=== PATIENT | female | born 1960 | race Caucasian/White ===

== ENCOUNTER 2019-10-24 14:05 | Outpatient (CLI) | payer OTHER, SELFPAY ==
[2019-10-24 15:31] LABS: Free T4 Free Thyroxine 0.86 ng/mL (0.78-2.19)
== END 2019-10-24 14:06 | disposition home or self-care (01) ==
PROVIDERS: Visit Provider Obstetrics & Gynecology
DX: R23.2 Flushing (principal)
CPT/HCPCS: 36415; 84439; 84443

== ENCOUNTER 2020-02-01 10:18 | Outpatient (CLI) | payer OTHER, SELFPAY ==
--- NOTE | ~2020-02-01 | MM_ITS ---
EXAMINATION: MM screening [facility] BI w geovanna HISTORY: Screening mammogram TECHNIQUE: Craniocaudal and mediolateral oblique 3-D tomosynthesis images were obtained and synthetic 2-D images were generated. CAD analysis was submitted and interpreted. COMPARISON: 01/03/2019 bilateral digital screening mammogram 12/21/2017 bilateral diagnostic digital mammogram and complete left breast ultrasound 12/12/2016 bilateral diagnostic digital mammogram and complete left breast ultrasound BREAST PARENCHYMAL COMPOSITION: The breasts are heterogeneously dense, which may obscure small masses . FINDINGS: Bilateral occasional circumscribed low-density opacities, largest situated posteriorly in t he mid and lower outer left breast, measuring 10.5 x 15.5 mm approximately. This has partial halo, co nsistent with benign process, probable cyst. There are scattered bilateral benign calcifications. There is no evidence of suspicious mass, calcifi cation, or architectural distortion to suggest malignancy in either breast. There has been no suspici ous interval change. IMPRESSION: 1. No mammographic evidence of malignancy. 2. Recommend routine screening mammography in one year. BI-RADS Category 2: Benign finding(s). Reviewed, dictated and finalized at location A. LED HELPER
== END 2020-02-01 10:19 | disposition home or self-care (01) ==
LOC: ANHIMG 10:19
PROVIDERS: Visit Provider Obstetrics & Gynecology
DX: Z12.31 Encounter for screening mammogram for malignant neoplasm of breast (principal)
CPT/HCPCS: 77063; 77067

== ENCOUNTER 2021-02-02 09:41 | Outpatient (CLI) | payer OTHER, SELFPAY ==
--- NOTE | ~2021-02-02 | MM_ITS ---
EXAMINATION: MM screening [facility] BI w geovanna HISTORY: Screening mammogram TECHNIQUE: Craniocaudal and mediolateral oblique 3-D tomosynthesis images were obtained and synthetic 2-D images were generated. CAD analysis was submitted and interpreted. COMPARISON: 02/01/2020, 01/03/2019, 12/21/2017 BREAST PARENCHYMAL COMPOSITION: The breasts are heterogeneously dense, which may obscure small masses . FINDINGS: Multiple obscured left breast masses are again identified without suspicious interval middleton e. There is no evidence of suspicious mass, calcification, or architectural distortion to suggest mal ignancy in either breast. There has been no suspicious interval change. IMPRESSION: 1. No mammographic evidence of malignancy. 2. Recommend routine screening mammography in one year. BI-RADS Category 2: Benign finding(s). Reviewed, dictated and finalized at location A. N PICKER
== END 2021-02-02 09:42 | disposition home or self-care (01) ==
LOC: ANHIMG 09:43
PROVIDERS: PCP Family Medicine; Visit Provider Obstetrics & Gynecology
DX: Z12.31 Encounter for screening mammogram for malignant neoplasm of breast (principal)
CPT/HCPCS: 77063; 77067

== ENCOUNTER 2021-10-12 09:48 | Outpatient (CLI) | payer OTHER, SELFPAY ==
[2021-10-12 18:54] LABS: Basophils Percent Auto 0.7 % (0.2-1.2); Eosinophils Absolute Auto 0.3 K/mm3 (0-0.3); Eosinophils Percent Auto 5.4 % (0-4.4); Hematocrit 43.9 % (37.0-47.0); Hemoglobin 14.4 g/dL (12.0-15.0); Immature Granulocyte Absolute 0.03 K/mm3 (0.00-0.031); Immature Granulocyte Percent A 0.5 % (0-0.5); Lymphocytes Absolute Auto 1.86 K/mm3 (0.9-3.2); Lymphocytes Percent Auto 30.2 % (18.3-44.2); Mean Corpuscular HGB Conc 32.8 g/dl (32-36); Mean Corpuscular Hemoglobin 29.9 pg (26-34); Mean Corpuscular Volume 91.1 fl (80-100); Mean Platelet Volume 9.8 fl (7.4-10.4); Monocytes Absolute Auto 0.5 K/mm3 (0.1-0.6); Monocytes Percent Auto 8.1 % (2.6-8.5); Neutrophils Absolute Auto 3.4 K/mm3 (1.3-6.7); Neutrophils Percent Auto 55.1 % (45.5-73.1); Platelet Count Result 320 k/mm3 (150-375); Red Blood Count 4.82 M/mm3 (4.2-5.4); Red Cell Distribution Width 13.3 % (11.5-14.5); White Blood Count 6.2 K/mm3 (4.5-10.0)
[2021-10-12 19:03] LABS: Alanine Aminotransferase 14 U/L (6-35); Albumin Level 4.2 g/dL (3.5-5.1); Alkaline Phosphatase 112 U/L (38-126); Anion Gap 3 mmol/L (8-16); Aspartate Amino Transferase 27 U/L (14-36); Bilirubin,Total 0.3 mg/dL (0.2-1.3); Blood Urea Nitrogen 21 mg/dL (7-17); Calcium 8.8 mg/dL (8.4-10.2); Carbon Dioxide 29 mmol/L (22-30); Chloride 101 mmol/L (98-107); Cholesterol 242 mg/dL (0-200); Estimated Glomerular Filt Rate > 60; Glucose 92 mg/dL (65-110); HDL Direct 49 mg/dL; Potassium 4.2 mmol/L (3.4-5.0); Sodium 133 mmol/L (137-145); Triglycerides 265 mg/dL (<150)
[2021-10-12 19:14] LABS: LDL Cholesterol Direct 97 mg/dL
== END 2021-10-12 09:49 | disposition home or self-care (01) ==
LOC: ANHGOSHLAB 09:51
PROVIDERS: PCP Family Medicine; Visit Provider Nurse Practitioner Family
DX: Z00.00 Encounter for general adult medical examination without abnormal findings (principal); E78.5 Hyperlipidemia, unspecified; E78.2 Mixed hyperlipidemia; E55.9 Vitamin D deficiency, unspecified
CPT/HCPCS: 36415; 80053; 80061; 82306; 84443; 85025

== ENCOUNTER 2022-02-03 13:30 | Outpatient (CLI) | payer OTHER, SELFPAY ==
--- NOTE | ~2022-02-03 | DEXA_ITS ---
Bone Density Report Name: ESPERANZA VELÁZQUEZ Age: 61 Sex: Female Ethnicity: White Date of : 1960 Indication: postmenopausal; screening for osteoporosis; height loss; hysterectomy; Referring Provider: NOREEN MCQUEEN Study: Bone densitometry was performed. Exam Date: February 03, 2022 Accession number: [id number] Bone Density: Region BMD T-score Z-score Classification AP Spine(L1-L4) 1.212 1.5 3.1 Normal Femoral Neck (Left) 0.849 0.0 1.4 Normal Total Hip (Left) 1.020 0.6 1.8 Normal Femoral Neck (Right) 0.982 1.2 2.6 Normal Total Hip (Right) 1.094 1.2 2.4 Normal Total Hip Mean 1.057 0.9 2.1 Normal World Health Organization criteria for BMD impression classify patients as: Normal (T-score at or above -1.0), Osteopenia (T-score between -1.0 and -2.5), or Osteoporosis (T-score at or below -2.5). 10-year Fracture Risk: FRAX not reported because: All T-scores for Spine Total, Hip Total, Femoral Neck at or above -1.0 Previous Exams: Region Exam Age BMD T-score BMD Change BMD Change Date g/cm2 vs Baseline vs Previous AP Spine (L1-L4) 02/03/2022 61 1.212 1.5 0.167 (16.0%)# 0.078 (6.9%)# 01/03/2019 58 1.133 0.8 0.088 (8.5%)* 0.085 (8.1%)# 10/23/2015 55 1.048 0.0 0.003 (0.3%)# 0.003 (0.3%)# 11/19/2012 52 1.045 0.0 Total Hip(Left) 02/03/2022 61 1.020 0.6 0.039 (4.0%)# -0.033 (-3.1%) 01/03/2019 58 1.053 0.9 0.072 (7.4%)* 0.015 (1.5%)# 10/23/2015 55 1.038 0.8 0.057 (5.8%)# 0.057 (5.8%)# 11/19/2012 52 0.981 0.3 Total Hip(Right) 02/03/2022 61 1.094 1.2 0.045 (4.3%)# -0.004 (-0.4%) 01/03/2019 58 1.099 1.3 0.050 (4.7%)* 0.071 (6.9%)# 10/23/2015 55 1.027 0.7 -0.022 (-2.1%) -0.022 (-2.1%) 11/19/2012 52 1.049 0.9 *Denotes significance at 95% confidence level, LSC for AP Spine = 0.022 g/cm2, LSC for Total Hip = 0.027 g/cm2 # Denotes dissimilar scan types or analysis methods Clinical Information Provided by Patient: Has used the following medications: Vitamin D, Calcium Has the following medical conditions: Hysterectomy Patient maximum height was 70 Menopause Age: 36 Onset of menses at age 10 Number of children 1 Impression: The patient has normal bone mass. No significant bone loss was observed. Discussion: BONE DENSITY IS ABOVE THE MINIMUM DESIRABLE LEVEL AT ALL SKELETAL SITES TESTED. This patient?s bone mineral density is above the m
--- NOTE | ~2022-02-03 | MM_ITS ---
EXAMINATION: MM screening [facility] BI w geovanna HISTORY: Screening TECHNIQUE: Craniocaudal and mediolateral oblique 3-D tomosynthesis images were obtained and synthetic 2-D images were generated. CAD analysis was submitted and interpreted. COMPARISON: Comparison to multiple prior studies sequentially, with oldest reviewed study dated 11/15. BREAST PARENCHYMAL COMPOSITION: The breasts are heterogeneously dense, which may obscure small masses . FINDINGS: There are multiple developing bilateral breast masses which are partially obscured by fibro glandular tissue. These masses are scattered throughout both breasts. There are scattered benign-appe aring calcifications without significant change. IMPRESSION: 1. Developing bilateral breast masses. 2. Additional mammographic views and possible breast ultrasound are recommended. BI-RADS Category 0: Incomplete: Needs additional imaging evaluation. Reviewed, dictated and finalized at location A. RATORY MANAGER IMPRESSION: 1. Developing bilateral breast masses. 2. Additional mammographic views and possible breast ultrasound are recommended . BI-RADS Category 0: Incomplete: Needs additional imaging evaluation.
== END 2022-02-03 13:31 | disposition home or self-care (01) ==
LOC: ANHIMG 13:33
PROVIDERS: PCP Family Medicine; Referring Provider Obstetrics & Gynecology; Visit Provider Nurse Practitioner Family
DX: Z12.31 Encounter for screening mammogram for malignant neoplasm of breast (principal); Z78.0 Asymptomatic menopausal state; R92.8 Other abnormal and inconclusive findings on diagnostic imaging of breast
CPT/HCPCS: 77063; 77067; 77080

== ENCOUNTER 2022-03-01 12:17 | Outpatient (CLI) | payer OTHER, SELFPAY ==
--- NOTE | ~2022-03-01 | MMUS_ITS ---
EXAMINATION: MM diagnostic [facility] BI w geovanna, US breast BI limited HISTORY: Bilateral breast masses on screening mammogram TECHNIQUE: Additional 3-D tomosynthesis images of the breasts were performed and synthetic 2-D images were generated. CAD analysis was submitted and interpreted. High resolution limited bilateral breast ultrasound was performed. COMPARISON: 02/03/2022, 02/02/2021, 02/01/2020, 01/03/2019, 12/21/2017 FINDINGS: MAMMOGRAPHIC FINDINGS: Left breast: There are waxing and waning masses of the left breast, previously characterized as cysts . None demonstrate suspicious interval change. Right breast: There are obscured equal density masses in the posterior third of the upper outer quadr ant of the right breast which measure up to 9 mm. No suspicious architectural distortion or calcifica tion are identified. ULTRASOUND: Left breast: Masses in the upper inner quadrant of the left breast have the appearance of cyst compli cated cysts. Right breast: There are multiple hypoechoic and anechoic masses in the upper outer quadrant of the ri ght breast which measure up to 12 mm. The masses demonstrate either posterior acoustic enhancement or no posterior features. None demonstrate internal vascularity. IMPRESSION: 1. Probably benign right breast masses. 2. Recommend 6 month follow-up right diagnostic mammogram and ultrasound. BI-RADS category 3, probably benign findings. Reviewed, dictated and finalized at location A. ORATE EVENT PLANNER IMPRESSION: 1. Probably benign right breast masses. 2. Recommend 6 month follow-up right diagnostic mammogram and ultrasound. BI-RADS category 3, probably benign findings.
== END 2022-03-01 12:18 | disposition home or self-care (01) ==
PROVIDERS: PCP Family Medicine; Visit Provider Obstetrics & Gynecology
DX: R92.8 Other abnormal and inconclusive findings on diagnostic imaging of breast (principal)
CPT/HCPCS: 76642; 77062; 77066; G0279

== ENCOUNTER 2022-06-02 12:33 | Outpatient (CLI) | payer OTHER, SELFPAY ==
[2022-06-02 19:57] LABS: Alanine Aminotransferase 32 U/L (6-35); Albumin Level 4.5 g/dL (3.5-5.1); Alkaline Phosphatase 89 U/L (38-126); Anion Gap 7 mmol/L (8-16); Aspartate Amino Transferase 30 U/L (14-36); Bilirubin,Total 0.6 mg/dL (0.2-1.3); Blood Urea Nitrogen 23 mg/dL (7-17); Carbon Dioxide 29 mmol/L (22-30); Chloride 102 mmol/L (98-107); Cholesterol 231 mg/dL (0-200); Estimated Glomerular Filt Rate > 60; Glucose 97 mg/dL (65-110); HDL Direct 40 mg/dL; Potassium 3.9 mmol/L (3.4-5.0); Sodium 138 mmol/L (137-145); Triglycerides 246 mg/dL (<150)
[2022-06-02 20:07] LABS: LDL Cholesterol Direct 100 mg/dL
== END 2022-06-02 12:34 | disposition home or self-care (01) ==
LOC: ANHGOSHLAB 12:34
PROVIDERS: PCP Family Medicine; Visit Provider Nurse Practitioner Family
DX: E78.5 Hyperlipidemia, unspecified (principal); I10 Essential (primary) hypertension
CPT/HCPCS: 36415; 80053; 80061

== ENCOUNTER 2022-07-12 11:54 | Outpatient (CLI) | payer OTHER, SELFPAY ==
--- NOTE | ~2022-07-12 | XR_ITS ---
Right Knee Technique: AP, lateral, and sunrise views were obtained. Clinical History: Pain Findings: No fracture or dislocation is seen. Osseous alignment is anatomic. There is advanced degene rative change of the patellofemoral compartment. Medial and lateral compartments demonstrate minimal degenerative change. Soft tissues are unremarkable. No joint effusion is seen. Impression: Severe degenerative change of the patellofemoral compartment. Minimal degenerative change of the lateral and medial compartments. Reviewed, dictated and finalized at location M. Impression: Severe degenerative change of the patellofemoral compartment. Minimal degenerative change of the lateral and medial compartments.
--- NOTE | ~2022-07-12 | XR_ITS ---
Left Knee Technique: AP, lateral, and sunrise views were obtained. Clinical History: Pain Findings: No fracture or dislocation is seen. Osseous alignment is anatomic. There is advanced degene rative change of the patellofemoral compartment. There is mild to moderate degenerative change of the medial compartment. There is minimal degenerative change of the lateral compartment. Soft tissues ar e unremarkable. No joint effusion is seen. 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 Reviewed, dictated and finalized at location M. Impression: Tricompartment osteoarthritis, as detailed above, worst in the patellofemoral c ompartment.
== END 2022-07-12 11:55 | disposition home or self-care (01) ==
PROVIDERS: PCP Family Medicine; Visit Provider Nurse Practitioner Family
DX: M17.0 Bilateral primary osteoarthritis of knee (principal)
CPT/HCPCS: 73562

== ENCOUNTER 2022-11-30 13:52 | Outpatient (CLI) | payer OTHER, SELFPAY ==
[2022-11-30 18:54] LABS: Basophils Percent Auto 0.8 % (0.2-1.2); Eosinophils Absolute Auto 0.1 K/mm3 (0-0.3); Eosinophils Percent Auto 2.5 % (0-4.4); Hemoglobin 15.2 g/dL (12.0-15.0); Immature Granulocyte Absolute 0.02 K/mm3 (0.00-0.031); Immature Granulocyte Percent A 0.4 % (0-0.5); Lymphocytes Absolute Auto 1.86 K/mm3 (0.9-3.2); Lymphocytes Percent Auto 35.1 % (18.3-44.2); Mean Corpuscular HGB Conc 32.3 g/dl (32-36); Mean Corpuscular Hemoglobin 29.6 pg (26-34); Mean Corpuscular Volume 91.4 fl (80-100); Mean Platelet Volume 9.9 fl (7.4-10.4); Monocytes Absolute Auto 0.5 K/mm3 (0.1-0.6); Monocytes Percent Auto 9.8 % (2.6-8.5); Neutrophils Absolute Auto 2.7 K/mm3 (1.3-6.7); Neutrophils Percent Auto 51.4 % (45.5-73.1); Platelet Count Result 300 k/mm3 (150-375); Red Blood Count 5.14 M/mm3 (4.2-5.4); Red Cell Distribution Width 13.2 % (11.5-14.5); White Blood Count 5.3 K/mm3 (4.5-10.0)
[2022-11-30 19:32] LABS: Alanine Aminotransferase 35 U/L (6-35); Albumin Level 4.7 g/dL (3.5-5.1); Alkaline Phosphatase 97 U/L (38-126); Anion Gap 6 mmol/L (8-16); Aspartate Amino Transferase 42 U/L (14-36); Bilirubin,Total 0.9 mg/dL (0.2-1.3); Blood Urea Nitrogen 18 mg/dL (7-17); Calcium 9.4 mg/dL (8.4-10.2); Carbon Dioxide 30 mmol/L (22-30); Chloride 101 mmol/L (98-107); Cholesterol 250 mg/dL (0-200); Estimated Glomerular Filt Rate > 60; Glucose 101 mg/dL (65-110); HDL Direct 48 mg/dL; Potassium 4.2 mmol/L (3.4-5.0); Sodium 137 mmol/L (137-145); Triglycerides 141 mg/dL (<150)
[2022-11-30 19:44] LABS: LDL Cholesterol Direct 124 mg/dL
[2022-12-04 14:43] LABS: Vitamin D 1,25 (OH)2 Total 24 pg/mL (18-72); Vitamin D2 1,25 (OH)2 <8 pg/mL; Vitamin D3 1,25 (OH)2 24 pg/mL
== END 2022-11-30 13:53 | disposition home or self-care (01) ==
LOC: ANHGOSHLAB 13:53
PROVIDERS: PCP Family Medicine; Visit Provider Nurse Practitioner Family
DX: Z00.00 Encounter for general adult medical examination without abnormal findings (principal); E78.2 Mixed hyperlipidemia; E55.9 Vitamin D deficiency, unspecified
CPT/HCPCS: 36415; 80053; 80061; 82652; 84443; 85025

== ENCOUNTER 2023-02-16 08:28 | Outpatient (CLI) | payer OTHER, SELFPAY ==
--- NOTE | ~2023-02-16 | MM_ITS ---
EXAMINATION: MM screening [facility] BI w geovanna HISTORY: Screening mammogram, patient is overdue for follow-up of probably benign right breast masses TECHNIQUE: Craniocaudal and mediolateral oblique 3-D tomosynthesis images were obtained and synthetic 2-D images were generated. CAD analysis was submitted and interpreted. COMPARISON: 03/01/2022, 02/03/2022, 02/02/2021, 01/31/2019 BREAST PARENCHYMAL COMPOSITION: The breasts are heterogeneously dense, which may obscure small masses . FINDINGS: Multiple bilateral breast masses have a mammographically similar appearance when compared t o the most recent prior examination. No suspicious mass, calcification, or architectural distortion a re identified in either breast to suggest malignancy. There has been no suspicious interval change. IMPRESSION: 1. No mammographic evidence of malignancy. 2. Patient is overdue for follow-up of probably benign right breast masses in the upper outer quadran t of the right breast. Given the interval mammographic stability, further evaluation with limited rig ht breast ultrasound is recommended. BI-RADS Category 0: Incomplete: Needs additional imaging evaluation. Reviewed, dictated and finalized at location A. R GUIDE IMPRESSION: 1. No mammographic evidence of malignancy. 2. Patient is overdue for follow-up of probably benign right breast masses in t he upper outer quadrant of the right breast. Given the interval mammographic st ability, further evaluation with limited right breast ultrasound is recommended . BI-RADS Category 0: Incomplete: Needs additional imaging evaluation.
== END 2023-02-16 08:29 | disposition home or self-care (01) ==
PROVIDERS: PCP Family Medicine; Visit Provider Obstetrics & Gynecology
DX: Z12.31 Encounter for screening mammogram for malignant neoplasm of breast (principal); R92.8 Other abnormal and inconclusive findings on diagnostic imaging of breast
CPT/HCPCS: 77063; 77067

== ENCOUNTER 2023-03-17 10:37 | Outpatient (CLI) | payer OTHER, SELFPAY ==
--- NOTE | ~2023-03-17 | US_ITS ---
US breast BI complete 03/17/2023 12:37 Indication: Follow-up bilateral breast masses Procedure: High-resolution complete bilateral breast ultrasound including all 4 quadrants in the suba reolar locations Comparison: Comparison to multiple prior studies sequentially, with oldest reviewed study dated 01/13. Findings: Right breast: There are multiple simple and complicated cysts of both breasts. At 1:00, 5 cm from the nipple there is an oval hypoechoic 7 mm mass with internal echogenic foci, possibly calcification. N o significant posterior features or internal vascularity. At 3:00, 4 cm from the nipple there is an o travis hypoechoic 6 mm mass with eccentric echogenic foci, no posterior features and no internal vascula rity. At 6:00, 6 cm from the nipple there is an oval hypoechoic 5 mm mass with low level internal ech oes, no significant posterior features and no internal vascularity. At 9:00, 5 cm from the nipple the re is a 1.3 cm cyst. Left breast: At 3:00, 5 cm from the nipple there is a 1 cm cyst. At 6:00, 5 cm from the nipple there is an irregular shaped hypoechoic 7 mm mass with some angular margins, parallel orientation, no poste rior features and no internal vascularity. Impression: 1: Probable benign bilateral breast masses. BI-RADS CATEGORY 3-PROBABLY BENIGN FINDING RECOMMENDATION: Six-month follow-up diagnostic bilateral mammogram and ultrasound recommended. Reviewed, dictated and finalized at location A. HER WRINGER OPERATOR Impression: 1: Probable benign bilateral breast masses. BI-RADS CATEGORY 3-PROBABLY BENIGN FINDING RECOMMENDATION: Six-month follow-up diagnostic bilateral mammogram and ultrasou nd recommended.
== END 2023-03-17 10:38 | disposition home or self-care (01) ==
LOC: ANHIMG 10:40
PROVIDERS: PCP Nurse Practitioner; Visit Provider Obstetrics & Gynecology
DX: R92.8 Other abnormal and inconclusive findings on diagnostic imaging of breast (principal)
CPT/HCPCS: 76641

== ENCOUNTER 2023-09-18 15:03 | Outpatient (CLI) | payer MEDICARE, SELFPAY | END 2023-09-18 15:04 | disposition home or self-care (01) | PROVIDERS: PCP Family Medicine; Visit Provider Family Medicine | DX: N39.0 Urinary tract infection, site not specified (principal); R31.9 Hematuria, unspecified | CPT/HCPCS: 87077; 87086; 87088; 87186 ==

== ENCOUNTER 2023-09-22 10:34 | Outpatient (CLI) | payer MEDICARE, OTHER, SELFPAY ==
--- NOTE | ~2023-09-22 | MMUS_ITS ---
EXAMINATION: MM diagnostic [facility] BI w geovanna, US breast BI limited HISTORY: Follow-up breast masses TECHNIQUE: Additional 3-D tomosynthesis images of the breasts were performed and synthetic 2-D images were generated. CAD analysis was submitted and interpreted. High resolution limited bilateral breast ultrasound was performed. COMPARISON: Comparison to multiple prior studies sequentially, with oldest reviewed study dated 12/15. BREAST PARENCHYMAL COMPOSITION: Not dense: There are scattered areas of fibroglandular density. FINDINGS: MAMMOGRAPHIC FINDINGS: There is progressive enlargement of right breast masses in the upper outer quadrant and upper inner q uadrant anteriorly. There are stable masses in the upper outer quadrant of the left breast. There are benign calcifications. No architectural distortion. ULTRASOUND: Limited right breast ultrasound: At 1:00, 5 cm from the nipple there is a round 5 mm mass with echoge gary foci, likely calcification, not significantly changed from prior study. At 3:00, 4 cm from the ni pple there is a slightly irregular shaped hypoechoic 4 mm mass with marginal vascularity without sign ificant change from prior study allowing for differences of technique. At 6:00, 6 cm from the nipple there is a hypoechoic 5 mm mass without significant change. At 9:00, 5 cm from the nipple there is a 1.4 cm cyst. At 9:00, 5 cm from the nipple there is an oval hypoechoic mass measuring 6 mm without po sterior features or internal vascularity. This has changed morphology since prior examination when it represented a 1.3 cm cyst, although likely benign. Limited left breast ultrasound: At 3:00, 5 cm from the nipple there is a 4 mm cyst. At 6:00, 5 cm fro m the nipple there is a cyst measuring 5 mm.. IMPRESSION: 1. Probable benign right breast masses. Six-month follow-up Limited right breast ultrasound recommend ed. 2. Stable left mammogram and ultrasound without evidence for malignancy. BI-RADS CATEGORY 3-PROBABLY BENIGN FINDING RECOMMENDATION: 6 month follow-up Limited right breast ultrasound recommended. Reviewed, dictated and finalized at location B. IMPRESSION: 1. Probable benign right breast masses. Six-month follow-up Limited right breas t ultrasound recommended. 2. Stable left mammogram and ultrasound without evidence for malignancy. BI-RADS CATEGORY 3-PROBABLY BENIGN FINDING RECOMMENDATION: 6 month follow-up Limited right breast ultrasound recommended.
== END 2023-09-22 10:35 | disposition home or self-care (01) ==
LOC: ANHIMG 10:35
PROVIDERS: PCP Family Medicine; Visit Provider Obstetrics & Gynecology
DX: R92.8 Other abnormal and inconclusive findings on diagnostic imaging of breast (principal)
CPT/HCPCS: 76642; 77062; 77066; G0279

== ENCOUNTER 2023-12-06 10:20 | Outpatient (CLI) | payer MEDICARE, SELFPAY ==
[2023-12-06 13:07] LABS: Basophils Percent Auto 0.7 % (0.2-1.2); Eosinophils Absolute Auto 0.2 K/mm3 (0-0.3); Eosinophils Percent Auto 3.5 % (0-4.4); Immature Granulocyte Absolute 0.01 K/mm3 (0.00-0.031); Immature Granulocyte Percent A 0.2 % (0-0.5); Lymphocytes Absolute Auto 1.64 K/mm3 (0.9-3.2); Lymphocytes Percent Auto 28.4 % (18.3-44.2); Mean Corpuscular HGB Conc 32.7 g/dl (32-36); Mean Corpuscular Hemoglobin 29.7 pg (26-34); Mean Corpuscular Volume 91.1 fl (80-100); Mean Platelet Volume 10.2 fl (7.4-10.4); Monocytes Absolute Auto 0.5 K/mm3 (0.1-0.6); Monocytes Percent Auto 9.3 % (2.6-8.5); Neutrophils Absolute Auto 3.4 K/mm3 (1.3-6.7); Neutrophils Percent Auto 57.9 % (45.5-73.1); Platelet Count Result 316 k/mm3 (150-375); Red Blood Count 5.38 M/mm3 (4.2-5.4); Red Cell Distribution Width 13.2 % (11.5-14.5); White Blood Count 5.8 K/mm3 (4.5-10.0)
[2023-12-06 13:18] LABS: Alanine Aminotransferase 29 U/L (6-35); Albumin Level 4.5 g/dL (3.5-5.1); Alkaline Phosphatase 107 U/L (38-126); Anion Gap 9 mmol/L (4-12); Aspartate Amino Transferase 56 U/L (14-36); Bilirubin,Total 0.9 mg/dL (0.2-1.3); Blood Urea Nitrogen 23 mg/dL (7-17); Calcium 9.3 mg/dL (8.4-10.2); Carbon Dioxide 29 mmol/L (22-30); Chloride 102 mmol/L (98-107); Cholesterol 163 mg/dL (0-200); Estimated Glomerular Filt Rate > 60; Glucose 88 mg/dL (65-110); HDL Direct 46 mg/dL; Potassium 4.1 mmol/L (3.4-5.0); Sodium 140 mmol/L (137-145); Triglycerides 157 mg/dL (<150)
[2023-12-06 13:28] LABS: LDL Cholesterol Direct 58 mg/dL
[2023-12-06 13:34] LABS: Vitamin D 25 Hydroxy 70.9 ng/mL
== END 2023-12-06 10:21 | disposition home or self-care (01) ==
LOC: ANHGOSHLAB 10:21
PROVIDERS: PCP Family Medicine; Visit Provider Nurse Practitioner Family
DX: F41.9 Anxiety disorder, unspecified (principal); E55.9 Vitamin D deficiency, unspecified; E78.2 Mixed hyperlipidemia
CPT/HCPCS: 36415; 80053; 80061; 82306; 84443; 85025

== ENCOUNTER 2024-02-15 10:36 | Outpatient (CLI) | payer MEDICARE, SELFPAY ==
[2024-02-15 11:22] LABS: Strep Group A RT-PCR NOT DETECTED (Negative)
[2024-02-15 11:33] LABS: Influenza A QL RT-PCR Negative (Negative); Influenza B QL RT-PCR Negative (Negative); RSV RNA, RT-PCR Negative (Negative); SARS-CoV-2 RNA PCR Negative (Negative)
== END 2024-02-15 10:37 | disposition home or self-care (01) ==
LOC: ANHLAB 10:38
PROVIDERS: PCP Family Medicine; Visit Provider Family Medicine
DX: J02.9 Acute pharyngitis, unspecified (principal); Z20.822 Contact with and (suspected) exposure to COVID-19
CPT/HCPCS: 87637; 87651

== ENCOUNTER 2024-04-19 12:32 | Outpatient (CLI) | payer MEDICARE, SELFPAY ==
--- NOTE | ~2024-04-19 | US_ITS ---
EXAM: Focused ultrasound examination of the soft tissues of the right breast HISTORY: R92.8 - Other abnormal and inconclusive findings on diagn... TECHNIQUE: Sonographic evaluation of the soft tissues of the right breast were performed assessing gr ayscale appearance and color Doppler flow. COMPARISON: 09/22/2023 and dating back to 03/01/2022. FINDINGS: At the 1:00 position of the right breast approximately 5 cm from the nipple is a well-circumscribed a nechoic avascular focus measuring 4.5 x 4.8 x 5.1 mm, consistent with a simple cyst for which no furt her follow-up is needed. At the 3:00 position of the right breast approximately 4 cm from the nipple is a well-circumscribed a vascular anechoic focus measuring 2.6 x 1.9 x 3.7 mm, consistent with a simple cyst for which no furt her follow-up is needed. At the 3:00 position of the right breast approximately 3 cm from the nipple is a cluster of well-circ umscribed anechoic avascular foci measuring 7.1 x 8.7 x 5.3 mm, consistent with a cluster of simple c ysts for which no further follow-up is needed. Intervening vascularity is detected, within normal debra ast tissue. At the 5:00 position of the right breast approximately 6 cm from the nipple is a well-circumscribed a vascular anechoic structure measuring 5.2 x 2.8 x 4.0 mm, consistent with a simple cyst for which no further follow-up is needed. At the 6:00 position of the right breast approximately 6 cm from the nipple is a well-circumscribed a nechoic avascular focus measuring 3.6 x 4.1 x 4.7 mm, consistent with a simple cyst for which no furt her follow-up is needed. At the 8:00 position of the right breast approximately 5 cm from the nipple is a well-circumscribed a nechoic avascular structure with increased through transmission measuring 6.1 x 6.3 x 6.0 mm, consist ent with a simple cyst for which no further follow-up is needed. At the 9:00 position of the right breast approximately 5 cm from the nipple is a well-circumscribed a nechoic avascular structure with increased through transmission measuring 12.2 x 10.6 x 9.5 mm, consi stent with a simple cyst for which no further follow-up is needed. Sonographic evaluation of the remainder of the soft tissues of the right breast demonstrate benign fi broglandular elements without a cystic or solid lesion of concern. IMPRESSION: Findings within the right breast which are most consistent with diffuse fibrocystic breast disease, w ith multiple cysts which wax and wane in size (and sometimes morphology) over time. BI-RADS Category 2: Benign findings. Return to yearly screening mammography (in September 2024) is recommended. Reviewed, dictated and finalized at location A. CTION THERAPIST IMPRESSION: Findings within the right breast which are most consistent with diffuse fibrocy stic breast disease, with multiple cysts which wax and wane in size (and someti mes morphology) over time. BI-RADS Category 2: Benign findings. Return to yearly screening mammography (in September 2024) is recommended.
--- OUTSIDE RECORDS SUMMARY | 2024-04-19 12:52 | XMS_ITS | Clinical Summary ---
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 Gender Identity Not on file Sexual Orientation Not on file Plan of Treatment Health Maintenance Due Date Last Done Comments DEXA Bone Density 1960 Hepatitis C Virus (HCV) Screening 1960 TdaP Immunization 1960 Pap Smear 10/06/1979 Cervical Cancer Screening (CCS) 1988 HPV/Cotest 1988 Colonoscopy 10/06/2003 Colorectal Cancer Screening 10/06/2003 Cologuard 2008 Immunochemical Fecal Occult Blood 2008 Mammogram 2008 Pneumococcal Immunization (5 0+ years) (1 of 1 - PCV) 2008 Zoster Immunization (1 of 2) 2008 Influenza Immunization (#1) 2023 SARS-COV-2 Immunization (2023- season) 2023 05/27/2020, 05/06/2020 Respiratory Syncytial Virus (RSV) Immunization (Adult) (1 - 1-dose 75+ series) 2033 Hepatitis B Immunization Aged Out No longer eligible based on patient's age to complete this topic Meningococcal Immunization (ACWY) Aged Out No longer eligible b ased on patient's age to complete this topic Pneumococcal Immunization Combined Aged Out No longer eligible b ased on patient's age to complete this topic Rotavirus Immunization Aged Out No lo nger eligible based on patient's age to complete this topic
== END 2024-04-19 12:33 | disposition home or self-care (01) ==
LOC: ANHIMG 12:33
PROVIDERS: PCP Family Medicine; Visit Provider Obstetrics & Gynecology
DX: R92.8 Other abnormal and inconclusive findings on diagnostic imaging of breast (principal)
CPT/HCPCS: 76642

== ENCOUNTER 2024-07-11 13:40 | Outpatient (CLI) | payer MEDICARE, SELFPAY ==
--- NOTE | ~2024-07-11 | DEXA_ITS ---
Bone Density Report Name: ESPERANZA VELÁZQUEZ Age: 63 Sex: Female Ethnicity: White Date of : 1960 Indication: postmenopausal; screening for osteoporosis; height loss; hysterectomy; Referring Provider: THANIA ANGEL Study: Bone densitometry was performed. Exam Date: July 11, 2024 Accession number: [id number] Bone Density: Region BMD T-score Z-score Classification AP Spine(L1-L4) 1.110 0.6 2.4 Normal Femoral Neck (Left) 0.853 0.0 1.6 Normal Total Hip (Left) 1.005 0.5 1.8 Normal Femoral Neck (Right) 0.943 0.8 2.4 Normal Total Hip (Right) 1.100 1.3 2.6 Normal Total Hip Mean 1.053 0.9 2.2 Normal World Health Organization criteria for BMD impression classify patients as: Normal (T-score at or above -1.0), Osteopenia (T-score between -1.0 and -2.5), or Osteoporosis (T-score at or below -2.5). 10-year Fracture Risk: FRAX not reported because: All T-scores for Spine Total, Hip Total, Femoral Neck at or above -1.0 Previous Exams: Region Exam Age BMD T-score BMD Change BMD Change Date g/cm2 vs Baseline vs Previous AP Spine (L1-L4) 07/11/2024 63 1.110 0.6 0.065 (6.3%)# -0.101 (-8.4%) 02/03/2022 61 1.212 1.5 0.167 (16.0%)# 0.078 (6.9%)# 01/03/2019 58 1.133 0.8 0.088 (8.5%)* 0.085 (8.1%)# 10/23/2015 55 1.048 0.0 0.003 (0.3%)# 0.003 (0.3%)# 11/19/2012 52 1.045 0.0 Total Hip(Left) 07/11/2024 63 1.005 0.5 0.024 (2.4%)# -0.015 (-1.5%) 02/03/2022 61 1.020 0.6 0.039 (4.0%)# -0.033 (-3.1%) 01/03/2019 58 1.053 0.9 0.072 (7.4%)* 0.015 (1.5%)# 10/23/2015 55 1.038 0.8 0.057 (5.8%)# 0.057 (5.8%)# 11/19/2012 52 0.981 0.3 Total Hip(Right) 07/11/2024 63 1.100 1.3 0.051 (4.9%)# 0.006 (0.5%) 02/03/2022 61 1.094 1.2 0.045 (4.3%)# -0.004 (-0.4%) 01/03/2019 58 1.099 1.3 0.050 (4.7%)* 0.071 (6.9%)# 10/23/2015 55 1.027 0.7 -0.022 (-2.1%) -0.022 (-2.1%) 11/19/2012 52 1.049 0.9 *Denotes significance at 95% confidence level, LSC for AP Spine = 0.022 g/cm2, LSC for Total Hip = 0.027 g/cm2 # Denotes dissimilar scan types or analysis methods Clinical Information Provided by Patient: Has used the following medications: Vitamin D, Calcium Has the following medical conditions: Hysterectomy Patient maximum height was 70 Menopause Age: 36 Onset of menses at age 10 Number of children 1 Impression: The patient has normal bone mass. The BMD for the AP Spine (L1-L4) decreased, changing by -8.4% since the last DXA exam. Discussion: BONE DENSITY IS ABOVE THE MINIMUM DESIRABLE LEVEL AT ALL SKELETAL SITES TESTED. This patient?s bone mineral density is above the minimum desirable level (T-score -1.0 or better) at all sites measured. The patient should follow a healthful lifestyle (good nutrition with adequate calcium and vitamin D, and appropriate weight-bearing exercise). Follow-Up: Consider repeating this study in 3 to 4 years to reassess this patient's status, or sooner if there is some new clinical indication. Reported by: KATJA on 07/11/2024 2:15:00 PM. Reviewed, dictated and finalized at location A.
--- OUTSIDE RECORDS SUMMARY | 2024-07-11 13:44 | XMS_ITS | Clinical Summary ---
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
--- OUTSIDE RECORDS SUMMARY | 2024-07-11 13:44 | XMS_ITS | Clinical Summary ---
Author Organization [facility] Address [address] [place] [address] Care Team Providers Care Senior Construction Estimator Name Role Phone Darren Mario MD Primary Care Provider [phone]- [phone] Allergies No known active allergies Medications estradiol (ESTRACE) 1 mg tablet 10/08/2017 Active venlafaxine XR (EFFEXOR-XR) 75 mg 24 hr capsule 10/08/2017 Active AMOXICILLIN 500 mg capsule TK 1 C PO BID FOR 10 DAYS 0 03/31/2018 Active oxyCODONE-aceta minophen (PERCOCET) 5-325 mg per tabletIndicatio ns:Pain TAKE 1-2 TABLETS EVERY 6 HOURS NEEDED FOR PAIN 40 tablet 01/04/2019 Active acetaminophen (TYLENOL) 500 mg tablet Take 500 mg by mouth every 6 (six) hours as needed for pain Active naproxen sodium 220 mg capsule Take by mouth Active calcium acetate (PHOSLO) 667 mg tablet Take 1,334 mg by mouth 3 (three) times a day with meals Active Active Problems Problem Noted Date Diagnosed Date Osteoarthritis of AC (acromioclavicular) joint 1 03/20/2018 Traumatic complete tear of right rotator cuff Overview (12/18/2018): Added automatically from request for surgery [id number] Complete tear of right rotator cuff 04/12/2018 Biceps tendinitis of right upper extremity 04/12 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 No runny nose or cough-->resolving with antibiotics Depression well controlled with meds Arthritis hands, shoulder Family History Medical History Relation Name Comments Cancer Father Diabetes Mother Kidney disease Sister Relation Name Status Comments Father Mother Sister Social History Tobacco Use Types Packs/Day Years Used Date Smoking Tobacco: Never Smokeless Tobacco: Never Alcohol Use Standard Drinks/Week Comments Yes 0 (1 standard drink = 0.6 oz pur e alcohol) rare-1x/year Personal Safety Answer Date Recorded Getting School Help Needed Not on file 04/28 Comments No Sex and Gender Information Value Date Recorded Sex Assigned at Not on file Legal Sex Female 10:45 AM PLANT TAXONOMIST Gender Identity Not on file Sexual Orientation Not on file Obstetrics History Last Filed Vital Signs Vital Sign Reading Time Taken Comments Blood Pressure 118/98 01/04/2019 1:30 PM PLANT TAXONOMIST Pulse 86 01/04/2019 1:35 PM PLANT TAXONOMIST Temperature 37 C (98.6 F) 01/04/2019 12:30 PM PLANT TAXONOMIST Respiratory Rate 18 01/04/2019 1:35 PM PLANT TAXONOMIST Oxygen Saturation 92% 01/04/2019 1:35 PM PLANT TAXONOMIST Inhaled Oxygen Concentration - - Weight 80 kg (176 lb 4.8 oz) 01/04/2019 9:15 AM PLANT TAXONOMIST Height 172.7 cm (5' 8) 01/04/2019 9:15 AM PLANT TAXONOMIST Body Mass Index 26.81 01/04/2019 9:15 AM PLANT TAXONOMIST Plan of Treatment Not on file Medical Devices Implanted Type Area Outreach Specialist Device Identifier Shelf Expiration Date Model / Serial / Lot [employer] [id number] Corkscrew Fiberwire Tigerwire 5.5mm 14.7mm 2 Drive Mechanism Vent - [id number] Implanted:Qty: 1 on 01/04/2019 by Yash Collier IV, MD at [facility] [employer] 07/13/2020 [id number] / / [id number] Insurance [facility] CHOICE PLUS [facility] PLUS Care Teams Senior Construction Estimator Relationship Specialty Start Date End Date Darren Mario MD [address] [place] [address] PCP - General Family Practice 04/12/18
--- OUTSIDE RECORDS SUMMARY | 2024-07-11 13:44 | XMS_ITS | Referral Summary ---
Author Organization [facility] Address [address] [place] [address] Care Team Providers Care Molasses And Caramel Operator Name Role Phone Darren Mario MD Primary Care Provider +1- [phone] Allergies No known active allergies Medications estradiol [...] (12/18/2018): Added automatically from request for surgery [id number] Complete tear of right rotator cuff 04/12/2018 [...] of knee 02/24/2011 Osteoarthritis of knee 02/22/2011 Social History Tobacco Use Types Packs/Day Years [...] on file Legal Sex Female 10:45 AM DISTRICT ATTORNEY Gender Identity Not on file Sexual Orientation Not on file Last Filed Vital Signs Vital Sign Reading Time Taken Comments Blood Pressure 118/98 01/04/2019 1:30 PM DISTRICT ATTORNEY Pulse 86 01/04/2019 1:35 PM DISTRICT ATTORNEY Temperature 37 C (98.6 F) 01/04/2019 12:30 PM DISTRICT ATTORNEY Respiratory Rate 18 01/04/2019 1:35 PM DISTRICT ATTORNEY Oxygen Saturation 92% 01/04/2019 1:35 PM DISTRICT ATTORNEY Inhaled Oxygen Concentration - - Weight 80 kg (176 lb 4.8 oz) 01/04/2019 9:15 AM DISTRICT ATTORNEY Height 172.7 cm (5' 8) 01/04/2019 9:15 AM DISTRICT ATTORNEY Body Mass Index 26.81 01/04/2019 9:15 AM DISTRICT ATTORNEY Plan of Treatment Not on file Medical Devices Implanted Type Area Director Global Strategic Publisher Sales Device Identifier Shelf Expiration Date Model / Serial / Lot [employer] [id number] Corkscrew Fiberwire Tigerwire 5.5mm 14.7mm 2 [address] Mechanism Vent - [id number] Implanted:Qty: 1 on 01/04/2019 by Yash Collier IV, MD at [facility] [employer] 07/13/2020 AR-192 [id number] / / [id number] Insurance [facility] PLUS [facility] [place] [address] Care Teams Molasses And Caramel Operator Relationship Specialty Start Date End Date Darren Mario MD [address] [place] [address] PCP - General Family Practice 04/12/18
== END 2024-07-11 13:41 | disposition home or self-care (01) ==
LOC: ANHIMG 13:42
PROVIDERS: PCP Family Medicine; Visit Provider Nurse Practitioner Family
DX: Z78.0 Asymptomatic menopausal state (principal)
CPT/HCPCS: 77080

== ENCOUNTER 2024-10-07 14:29 | Outpatient (CLI) | payer MEDICARE, SELFPAY ==
--- OUTSIDE RECORDS SUMMARY | 2024-10-07 14:36 | XMS_ITS | Clinical Summary ---
Author Organization [facility] Care Team Providers Care Splitter Tender Name Role Phone Unavailable Primary Care Provider Unavailabl e Social History Tobacco Use Types Packs/Day Years Used Date Smoking Tobacco: Never Assessed Comments Unknown Sex and Gender Information Value Date Recorded Sex Assigned at Not on file Legal Sex Female 12:15 PM PERSONAL LINES ADVISOR Gender Identity Not on file Sexual Orientation Not on file Plan of Treatment Health Maintenance Due Date Last Done Comments Hepatitis C Virus (HCV) Screening 1960 TdaP Immunization 1960 Cologuard 10/06/2003 Colonoscopy 10/06/2003 Colorectal Cancer Screening 10/06/2003 Immunochemical Fecal Occult Blood 10/06/2003 Pneumococcal Immunization (5 0+ years) (1 of 1 - PCV) 2008 Zoster Immunization (1 of 2) 2008 SARS-COV-2 Immunization (3 - season) 2023 05/27/2020, 05/06/2020 Influenza Immunization (#1) 2024 Respiratory Syncytial Virus (RSV) Immunization (Adult) (1 - 1-dose 75+ series) 2033 Hepatitis B Immunization Aged Out No longer eligible based on patient's age to complete this topic Human Papillomavirus (HPV) Immunization Aged Out No longer eligible b ased on patient's age to complete this topic Meningococcal Immunization (ACWY) Aged Out No longer eligible b ased on patient's age to complete this topic Rotavirus Immunization Aged Out No lo nger eligible based on patient's age to complete this topic
--- OUTSIDE RECORDS SUMMARY | 2024-10-07 14:36 | XMS_ITS | Clinical Summary ---
Author Organization [facility] Address [address] [place] [address] Care Team Providers Care Ad Clerk Name Role Phone Darren Mario MD Primary Care Provider +1- [phone] Allergies No known active allergies Medications estradiol [...] (12/18/2018): Added automatically from request for surgery [id number] Complete tear of right rotator cuff 04/12/2018 [...] on file Legal Sex Female 10:45 AM ON CALL PHARMACY TECHNICIAN Gender Identity Not on file Sexual Orientation Not on file Obstetrics History Last Filed Vital Signs Vital Sign Reading Time Taken Comments Blood Pressure 118/98 01/04/2019 1:30 PM ON CALL PHARMACY TECHNICIAN Pulse 86 01/04/2019 1:35 PM ON CALL PHARMACY TECHNICIAN Temperature 37 C (98.6 F) 01/04/2019 12:30 PM ON CALL PHARMACY TECHNICIAN Respiratory Rate 18 01/04/2019 1:35 PM ON CALL PHARMACY TECHNICIAN Oxygen Saturation 92% 01/04/2019 1:35 PM ON CALL PHARMACY TECHNICIAN Inhaled Oxygen Concentration - - Weight 80 kg (176 lb 4.8 oz) 01/04/2019 9:15 AM ON CALL PHARMACY TECHNICIAN Height 172.7 cm (5' 8) 01/04/2019 9:15 AM ON CALL PHARMACY TECHNICIAN Body Mass Index 26.81 01/04/2019 9:15 AM ON CALL PHARMACY TECHNICIAN Plan of Treatment Not on file Medical Devices Implanted Type Area Sap Hana Architect Device Identifier Shelf Expiration Date Model / Serial / Lot [employer] [id number] Corkscrew Fiberwire Tigerwire 5.5mm 14.7mm [address] Mechanism Vent - [id number] Implanted:Qty: 1 on 01/04/2019 by Yash Collier IV, MD at [facility] [employer] 07/13/2020 AR-192 7B / / [id number] Insurance [facility] CHOICE PLUS [facility] CHOICE PLUS Care Teams Ad Clerk Relationship Specialty Start Date End Date Darren Mario MD [address] [place] [address] PCP - General Family Practice 04/12/18
--- NOTE | 2024-10-07 14:39 | ECG_ITS ---
Test Date: 2024-10-07 14:53:09 Measurements Intervals Leigh Rate: 77 P: 43 NV: 178 QRS: 15 QRSD: 88 T: 45 QT: 357 QTc: 405 Interpretive Statements SINUS RHYTHM BASELINE ARTIFACT- I, II, III, AVR, AVL, AVF NORMAL ECG No previous ECG available for comparison Electronically Signed On 10-07-2024 14:59:39 CDT by Kole Velásquez D.O.
[2024-10-07 14:58] LABS: Hematocrit 47.2 % (37.0-47.0); Hemoglobin 15.5 g/dL (12.0-15.0); Immature Granulocyte Percent A 0.4 % (0-0.5); Lymphocytes Absolute Auto 1.59 K/mm3 (0.9-3.2); Mean Corpuscular HGB Conc 32.8 g/dl (32-36); Mean Corpuscular Hemoglobin 29.6 pg (26-34); Mean Corpuscular Volume 90.2 fl (80-100); Nucleated Red Blood Cells Absolute Auto 0.000 K/mm3 (0.0-0.012); Nucleated Red Blood Cells Perc 0.0 % (0.0-0.2); Platelet Count Result 298 k/mm3 (150-375); Red Blood Count 5.23 M/mm3 (4.2-5.4); White Blood Count 5.4 K/mm3 (4.5-10.0)
[2024-10-07 15:13] LABS: Anion Gap 7 mmol/L (4-12); Blood Urea Nitrogen 19 mg/dL (7-17); Calcium 9.5 mg/dL (8.4-10.2); Carbon Dioxide 29 mmol/L (22-30); Chloride 103 mmol/L (98-107); Estimated Glomerular Filt Rate > 60; Glucose 105 mg/dL (65-110); Potassium 4.2 mmol/L (3.4-5.0); Sodium 139 mmol/L (137-145)
[2024-10-07 17:07] LABS: Add Urine Microscopic? YES; Appearance Urine Clear (Clear); Glucose Urine UA Negative (Negative); Leukocyte Esterase Ur 2+ LEU/UL (Negative); Need Manual Microscopic Reviewed; Nitrate Urine Negative (Negative); Non Pathogenic Casts 0-2; Specific Grav Ur 1.022 (1.001-1.035)
== END 2024-10-07 14:30 | disposition home or self-care (01) ==
PROVIDERS: PCP Family Medicine; Visit Provider Orthopaedic Surgery
DX: M17.12 Unilateral primary osteoarthritis, left knee (principal); E78.2 Mixed hyperlipidemia; R53.83 Other fatigue; E55.9 Vitamin D deficiency, unspecified; Z86.79 Personal history of other diseases of the circulatory system; I10 Essential (primary) hypertension
CPT/HCPCS: 36415; 80048; 81001; 85025; 87086; 93005

== ENCOUNTER 2024-10-22 13:41 | Outpatient (CLI) | payer MEDICARE, SELFPAY ==
[2024-10-22 14:50] LABS: Albumin Level 4.4 g/dL (3.5-5.1)
[2024-10-22 15:11] LABS: INR 0.9; Prothrombin Time 12.8 Seconds (11.1-14.7)
[2024-10-22 15:12] LABS: Partial Thromboplastin Time 26.7 Seconds (22.3-36.8)
--- OUTSIDE RECORDS SUMMARY | 2024-10-22 15:15 | XMS_ITS | Clinical Summary ---
Author Organization [facility] Care Team Providers Care Conveyor Console Operator Name Role Phone Unavailable Primary Care Provider Unavailabl e Social History Tobacco Use Types Packs/Day Years Used Date Smoking Tobacco: Never Assessed Comments Unknown Sex and Gender Information Value Date Recorded Sex Assigned at Not on file Legal Sex Female 12:15 PM SERVICE CAR OPERATOR Gender Identity Not on file Sexual Orientation [...]
--- OUTSIDE RECORDS SUMMARY | 2024-10-22 15:15 | XMS_ITS | Clinical Summary ---
Author Organization [facility] Address [address] [place] [address] Care Team Providers Care Telesales Advisor Name Role Phone Darren Mario MD Primary Care Provider +1- [phone] Allergies No known active allergies Medications estradiol [...] (12/18/2018): Added automatically from request for surgery [id number] Complete tear of right rotator cuff 04/12/2018 [...] on file Legal Sex Female 10:45 AM SENIOR QA ENGINEER Gender Identity Not on file Sexual Orientation Not on file Obstetrics History Last Filed Vital Signs Vital Sign Reading Time Taken Comments Blood Pressure 118/98 01/04/2019 1:30 PM SENIOR QA ENGINEER Pulse 86 01/04/2019 1:35 PM SENIOR QA ENGINEER Temperature 37 C (98.6 F) 01/04/2019 12:30 PM SENIOR QA ENGINEER Respiratory Rate 18 01/04/2019 1:35 PM SENIOR QA ENGINEER Oxygen Saturation 92% 01/04/2019 1:35 PM SENIOR QA ENGINEER Inhaled Oxygen Concentration - - Weight 80 kg (176 lb 4.8 oz) 01/04/2019 9:15 AM SENIOR QA ENGINEER Height 172.7 cm (5' 8) 01/04/2019 9:15 AM SENIOR QA ENGINEER Body Mass Index 26.81 01/04/2019 9:15 AM SENIOR QA ENGINEER Plan of Treatment Not on file Medical Devices Implanted Type Area Metal Tile Lather Device Identifier Shelf Expiration Date Model / Serial / Lot [employer] [id number] Corkscrew Fiberwire Tigerwire 5.5mm 14.7mm [address] Mechanism Vent - [id number] Implanted:Qty: 1 on 01/04/2019 by Yash Collier IV, MD at [facility] [employer] 07/13/2020 AR-192 [id number] / / [id number] Insurance [facility] CHOICE PLUS [facility] CHOICE PLUS Care Teams Telesales Advisor Relationship Specialty Start Date End Date Darren Mario MD [address] [place] [address] PCP - General Family Practice 04/12/18
[2024-10-22 15:54] LABS: MRSA (PCR) NOT DETECTED (NOT DETECTE)
[2024-10-22 16:00] LABS: Hemoglobin A1C 5.8 % (<5.7)
== END 2024-10-22 13:42 | disposition home or self-care (01) ==
LOC: ANHSURGERY 13:46
PROVIDERS: PCP Nurse Practitioner Family; Visit Provider Orthopaedic Surgery
DX: Z01.812 Encounter for preprocedural laboratory examination (principal); M17.12 Unilateral primary osteoarthritis, left knee
CPT/HCPCS: 80307; 82040; 83036; 85610; 85730; 87641

== ENCOUNTER 2024-11-06 15:49 | Observation (INO) | payer MEDICARE, SELFPAY ==
[2024-10-22 14:07] VITALS: BP 131/73; PULSE 88; RESP 14; TEMP 36.3; O2SAT 93; BMI 33.7
--- NOTE | 2024-10-22 14:21 | PC.NURSE ---
Report to the Outpatient Waiting Room, entrance under the green pavilion located off [facility], at time- 10:00am on date _11/05/24 . Planned Procedure Time: __1200pm .? Time changes happen often and if your time is changed the preop area will call you the afternoon before. - You and your visitor will be asked to self-screen and do not enter if you have any COVID symptoms. Please call surgeon if you need to reschedule. - A mask is optional within the hospital at this time. Patients may have clear liquids (water, carbonated beverages, clear teas, apple juice) until 3 hours prior to surgery with a maximum of 20 ounces. - No food from midnight until time of surgery and no smoking, or chewing tobacco (or any form of nicotine). No chewing gum, candy or mints. (1100am) Take only the following medications with a SIP of water on the morning of surgery: ____Citalopram, Hydrocodone and Alprazolam if needed DO NOT STOP ANY OF YOUR OTHER PRESCRIPTION MEDICATIONS PRIOR TO SURGERY EXCEPT THE FOLLOWING Hold all vitamins and supplements for 3 days per anesthesiologist. Medications to discontinue per physician NONE Date to take last dose NONE Please no make-up, nail maltese, hairspray, perfume, deodorant, or body powder the day of surgery.? No jewelry (including any body piercings) or valuables the day of surgery, leave them at home.? Please take a shower or bath the night before, or the morning of, surgery with an antibacterial soap & HIBICLEANSE SCRUB .? Wear comfortable, loose fitting clothing.? Bring overnight bag, Cell phone sas statistical programmer/Phone , walker, tennis shoes - Jewelry must be removed prior to entering the operating room.? Rings and piercings that are not removed may be cut off. - The hospital will not accept responsibility for valuables.? - Please leave all valuables, including medications, at home the day of surgery. If you are going home after surgery, a licensed local company flatbed truck driver must drive you home.? - NO public transportation without another adult if you receive anesthesia. - We recommend that an adult stay with you for 24 hours following discharge. - We also recommend that you do not drive, make important decision, drink alcoholic beverages, or take any drugs that were not prescribed by your health care provider for at least 24 hours after your discharge time. Follow any additional instructions given to you from your surgeon. Telephone instructions given to __patient and asked if any additional questions and then verbalized understanding. Patient advised to call surgeon office or pre surgery nurse liaison [phone] if any additional questions.
[2024-11-05] VITALS (16 sets, daily range): BP systolic 122–158; BP diastolic 50–97; PULSE 80–101; RESP 12–20; TEMP 36.5–37.7; O2SAT 91–100; BMI 33.1
--- OUTSIDE RECORDS SUMMARY | 2024-11-05 01:57 | XMS_ITS | Clinical Summary ---
Author Organization [facility] Address [address] [place] [address] Care Team Providers Care Professor Of Geography Name Role Phone Darren Mario MD Primary Care Provider +1- [phone] Allergies No known active allergies Medications estradiol [...] (12/18/2018): Added automatically from request for surgery [id number] Complete tear of right rotator cuff 04/12/2018 [...] on file Legal Sex Female 10:45 AM TELEPHONE ADVICE NURSE Gender Identity Not on file Sexual Orientation Not on file Obstetrics History Last Filed Vital Signs Vital Sign Reading Time Taken Comments Blood Pressure 118/98 01/04/2019 1:30 PM TELEPHONE ADVICE NURSE Pulse 86 01/04/2019 1:35 PM TELEPHONE ADVICE NURSE Temperature 37 C (98.6 F) 01/04/2019 12:30 PM TELEPHONE ADVICE NURSE Respiratory Rate 18 01/04/2019 1:35 PM TELEPHONE ADVICE NURSE Oxygen Saturation 92% 01/04/2019 1:35 PM TELEPHONE ADVICE NURSE Inhaled Oxygen Concentration - - Weight 80 kg (176 lb 4.8 oz) 01/04/2019 9:15 AM TELEPHONE ADVICE NURSE Height 172.7 cm (5' 8) 01/04/2019 9:15 AM TELEPHONE ADVICE NURSE Body Mass Index 26.81 01/04/2019 9:15 AM TELEPHONE ADVICE NURSE Plan of Treatment Not on file Medical Devices Implanted Type Area Sourcing Assistant Device Identifier Shelf Expiration Date Model / Serial / Lot [employer] [id number] Corkscrew Fiberwire Tigerwire 5.5mm 14.7mm 2 [address] Mechanism Vent - [id number] Implanted:Qty: 1 on 01/04/2019 by Yash Collier IV, MD at [facility] [employer] 07/13/2020 AR-192 [id number] / / [id number] Insurance [facility] CHOICE PLUS [facility] CHOICE PLUS Care Teams Professor Of Geography Relationship Specialty Start Date End Date Darren Mario MD [address] [place] [address] PCP - General Family Practice 04/12/18
--- OUTSIDE RECORDS SUMMARY | 2024-11-05 01:57 | XMS_ITS | Clinical Summary ---
Author Organization [facility] Care Team Providers Care Chronometer Assembler Name Role Phone Unavailable Primary Care Provider Unavailabl e Social History Tobacco Use Types Packs/Day Years Used Date Smoking Tobacco: Never Assessed Comments Unknown Sex and Gender Information Value Date Recorded Sex Assigned at Not on file Legal Sex Female 12:15 PM MORTGAGE ADVISOR Gender Identity Not on file Sexual [...]
[2024-11-05] MEDS: LACTATED RINGERS 1,000 ML 30 ML IV CONT ×2 (10:00→13:48)
--- NOTE | 2024-11-05 10:50 | WPDHPUPDATE1 ---
History and Physical Update Update Date/Time: 11/05/24 10:50 History and Physical has been reviewed, including an updated exam of the patient. There are NO changes in the patient's condition. Risks, benefits, and alternatives have been discussed and questions answered. Patient agrees to proceed with procedure.
[2024-11-05] MEDS: TRANEXAMIC ACID 1,000MG/ISO100 1,000 MG/100 ML BAG 200 MG IVPB (11:03)
[2024-11-05] MEDS: ACETAMINOPHEN 500 MG TABLET 1000 MG PO (11:03)
--- NOTE | 2024-11-05 11:18 | WPDANESEPPF ---
Anes - Initial Pre Proc Eval Procedure: Operation Date: 11/05/24 11:30 Proposed Procedures p Left Total Knee Arthroplasty - Jace Henry MD Date/Time: 11/05/24 11:18 Surgeon: Jace Henry MD Pre Op Diagnosis: left knee djd Patient Data Age: 64 Gender: F Height: 1.7 m Weight: 96.1 kg Last Vital Signs Temp 97.7 F 11/05/24 10:41 Pulse 90 11/05/24 10:41 Resp 14 10/22/24 14:07 BP 137/92 H 11/05/24 10:41 Pulse Ox 94 11/05/24 10:41 O2 Del Method Room Air 11/05/24 10:41 Allergies Allergy/AdvReac Type Severity Reaction Status Date / Time No Known Allergies Allergy Verified 10/22/24 14:04 Home Medications ?Medication ?Instructions ?Recorded ?Confirmed ?Type calcium carbonate (Calcium 600) 600 mg PO DAILY 10/24/19 10/22/24 History cholecalciferol (vitamin D3) 50 50 mcg PO DAILY 10/29/20 10/22/24 History mcg (2,000 unit) capsule atorvastatin 10 mg tablet (Lipitor) 10 mg PO QHS #90 tabs 07/11/24 10/22/24 Rx hydrocodone 5 mg-acetaminophen 325 1 tablet PO Q8H PRN pain #30 tabs 09/05/24 10/22/24 Rx mg tablet citalopram 40 mg tablet 20 mg (1/2 x 40 mg) PO DAILY #90 10/09/24 10/22/24 Rx tabs alprazolam 0.5 mg tablet 0.5 mg PO BID PRN anxiety #60 tabs 10/23/24 Rx chlorhexidine gluconate 4 % 1 applic topical ONCE #237 mL 10/29/24 Rx topical liquid (Hibiclens) Laboratory Tests 11/05/24 10:34 Blood Type O Positive Antibody Screen Pending Patient hx anesthesia problems: none Family hx anesthesia problems: none Results Review: All pre-operative results and documents have been reviewed as part of the pre-operative evaluation. [facility] Past Medical History Medical History Other fatigue Gastroesophageal reflux disease Hormone replacement therapy History of ectopic History of miscarriage History of vaginal delivery Arthritis of both knees Mixed hyperlipidemia Seasonal allergies Anxiety Surgical History Surgical History [place] teeth extracted H/O lumpectomy History of hysterectomy H/O rotator cuff surgery (~12/2018) Right side Family History Family History Father Leukemia Mother Diabetes mellitus Sibling Kidney failure Social History Social History Smoking status: Never smoker Alcohol intake: never Substance use: never Lack of Transportation: No Lack of Food: Never True Current Housing: I Have Housing Concerned About Future Housing: No Difficulty Paying Gas/Electric Bills: No Difficulty Paying for Meds: No Education: High School Diploma/GED Difficulty w/ Childcare or Family Care: No Living arrangements: with family Additional living arrangements comments: lives with Occupation/Education: retired Gender identity (if verbalized by the patient): Female Spiritual care concerns: No Anes - Eval Final PreProcedure Day of Procedure 11/05/24 11:18 Patient weight: obese Lungs: normal air movement Airway: Mallampati scale class II Neurological: alert and oriented Last oral intake: >/= 8 hours ASA classification: II Emergent: no Anesthetic plan: proceed Anesthesia type and monitoring: general ETT and standard monitoring Results Review: All pre-operative results and documents have been reviewed as part of the pre-operative evaluation. Hyperlipidemia. BMI 33. Informed Consent: The patient's anesthetic plan and its attendant risks and benefits were discussed with the patient/family/POA. Questions were solicited and answers provided to the satisfaction of the patient/family/POA.
[2024-11-05] MEDS: ceFAZolin 2 GM in SODIUM CHLORIDE 0.9% IV 50 ML 100 ML IVPB ×2 (11:38→18:56)
[2024-11-05] MEDS: SODIUM CHLORIDE 0.9% IV 37.7 ML, MORPHINE SULFATE INJ (*CRX) 2 MG, ROPivacaine HCL 1% 2... INFILTRATE (12:25)
[2024-11-05] MEDS: GENTAMICIN BONE CEMENT REFOBACIN 1 EACH TOPICAL (12:41)
[2024-11-05] MEDS: TRANEXAMIC ACID 1,000 MG/10 ML AMPUL 1000 MG IV PUSH (13:04)
--- NOTE | 2024-11-05 13:50 | W.PM.PROC2 ---
Procedure Note - Detailed Date of Procedure 11/05/24 Pre-op Diagnosis left knee djd Post-op Diagnosis Same Procedure Performed L TKA Surgeon Jace Henry MD Anesthesia General Description of Procedure THE LEFT KNEE WAS PREPPED AND DRAPED IN THE STERILE FASHION. A MIDLINE SKIN INCISION WAS MADE. A MEDIAL PARAPATELLAR ARTHROTOMY WAS MADE. THE PATELLA WAS EVERTED. THERE WAS TRICOMPARTMENT DJD. THERE WAS MINIMAL PATELLA DJD. AN INTRAMEDULLARY PIYUSH WAS PLACED IN THE FEMUR. A DISTAL FEMORAL CUT WAS MADE IN 5 DEGREES OF VALGUS REMOVING APPROXIMATELY 9 MM OF BONE FROM THE DISTAL FEMUR. THE FEMUR WAS SIZED TO 65. A 65 FEMORAL CUTTING BLOCK WAS PLACED IN 3 DEGREES OF EXTERNAL ROTATION AND IN ALIGNMENT WITH KUNAL'S LINE AND THE TRANSEPICONDYLAR AXIS. ANTERIOR POSTERIOR AND CHAMFER CUTS WERE MADE. THE CUTS WERE EXCELLENT. NEXT AN INTRAMEDULLARY CUTTING GUIDE WAS PLACED IN THE TIBIA. A TRANS TIBIAL CUT WAS MADE ALONG THE LONG AXIS OF THE TIBIA. APPROXIMATELY 10 MM OF BONE WAS REMOVED FROM THE HIGH SIDE OF THE TIBIA. THE TIBIA WAS THEN PLANED TO A SMOOTH SURFACE. POSTERIOR FEMORAL OSTEOPHYTES WERE REMOVED FROM THE FEMORAL CONDYLES. A 71 TIBIAL TRIAL WAS PLACED IN ALIGNMENT WITH THE 1/3 MEDIAL ASPECT OF THE TIBIAL TUBERCLE. THEN A 65 FEMORAL TRIAL COMPONENT WAS PLACED. BOTH HAD EXCELLENT FITS. EVENTUALLY A 12 MM POLYETHYLENE TRIAL COMPONENT WAS PLACED. THE KNEE WAS TAKEN THROUGH A RANGE OF MOTION. THE KNEE CAME OUT TO FULL EXTENSION. THERE WAS NO ABNORMAL TILT TO THE PATELLA. THERE WAS GOOD A/P AND VARUS/VALGUS STABILITY. THERE WAS NO EXCESSIVE ROLL BACK WITH FLEXION. THE TRIAL COMPONENTS WERE REMOVED. THEN A 65 FEMORAL COMPONENT AND 71 TIBIAL COMPONENT WITH A 12 POLYETHYLENE COMPONENT WERE CEMENTED INTO PLACE. ONCE THE CEMENT WAS HARD THE KNEE WAS TAKEN THROUGH A ROM AGAIN AND FOUND TO BE STABLE WITH NO PATELLA TILT NO EXCESSIVE ROLL BACK WITH FLEXION AND GOOD STABILITY WITH COMPLETE AND FULL EXTENSION. THE KNEE WAS IRRIGATED WITH STERILE BETADINE AND WATER FOR ABOUT 3 MINUTES. THE BLEEDERS WERE CAUTERIZED. THE ARTHROTOMY WAS REPAIRED WITH NUMBER 1 VICRYL. THE SUB CUTANEOUS LAYER WITH 2-0 VICRYL AND THE SKIN WITH 3-0 QUIL AND DERMABOND. THE WOUND WAS WASHED AND A STERILE DRESSING WAS APPLIED. PATIENT WAS EXTUBATED. Estimated Blood Loss -150.0 Pathology None sent Complications No immediate complications Condition Stable Disposition PACU
[2024-11-05] MEDS: fentaNYL CITRATE INJ (*CRX) 100 MCG/2 ML VIAL 25 MCG IV PUSH ×2 (14:35→14:37)
--- NOTE | 2024-11-05 14:42 | WPDANESPNB ---
Anes - Peripheral Nerve Block Date/Time: 11/05/24 14:42 I have discussed with the patient/family/POA the placement of a peripheral nerve block for post-operative pain management, including associated risks, benefits, complications, and side effects. Alternative methods of post-operative analgesia were detailed. Questions were solicited and answers provided to the satisfaction of the patient/family/POA. Time-Out: A pre-procedural Time-Out was completed immediately before starting the procedure and confirmed: Patient Identification, Site, Procedure, Patient Position and the Availability of Requisite Equipment. Clinical Indications: Acute post-operative pain management requested by the operative surgeon. Nerve Block Insertion Note Anes-nerve block: femoral left Patient position: supine Skin prep: chlorhexidine Needle: 22 gauge, stimulating, insulated echogenic needle. Needle length: 50 mm Technique: nerve stimulation lost at (mA) (0.45) Injectate: bupivacaine 0.5% with epi 5 mcg/ml (20cc no epi) Observations: tolerated well Procedure start time:: 1438 Procedure end time:: 1441
--- NOTE | 2024-11-05 15:28 | SUR.PHASEI ---
1455: Patient meets PACU discharge criteria, unit bed unavailable at this time. Patient placed in extended recovery status.
--- NOTE | 2024-11-05 15:56 | ADMGEN ---
This patient, Kassandra Cancino, was admitted to -. Patient/family oriented to hospital policies and general routines including ID bracelet, bed and alarms, visiting hours, pain management, procedures, bathroom and other care routines, personal items, smoking policy, room service/diet, and visiting hours. Information on how to activate the Rapid Response Team has been discussed. Patient/Family are encouraged to report perceived risks to care and to ask questions if they do not understand what they are told or what they should do.
[2024-11-05] MEDS: FAMOTIDINE 20 MG TABLET PO (20:21)
[2024-11-05] MEDS: ATORVASTATIN 10 MG TABLET PO (20:22)
[2024-11-05] MEDS: KETOROLAC 15 MG/ML VIAL (*BKC) IV PUSH (21:51)
[2024-11-06] VITALS (10 sets, daily range): BP systolic 114–136; BP diastolic 53–66; PULSE 79–103; RESP 16–20; TEMP 37–38.4; O2SAT 90–98
--- NOTE | ~2024-11-06 | XR_ITS ---
EXAMINATION: [id number] DATE: 11/05/2024 14:23 CDT INDICATION: Left total knee arthroplasty TECHNIQUE: 2 views left knee FINDINGS: There is a left total knee arthroplasty in expected position. Subcutaneous gas with fluid and air in the joint are consistent with recent surgery. No evidence of periprosthetic fracture. IMPRESSION: 1. Recent left total knee arthroplasty. Reviewed, dictated and finalized at location O.
[2024-11-06] MEDS: oxyCODONE/ACETAMINOPHEN (*CRX) 10-325 MG TABLET 1 TAB PO ×3 (02:54→21:46)
[2024-11-06] MEDS: ceFAZolin 2 GM in SODIUM CHLORIDE 0.9% IV 50 ML 100 ML IVPB ×2 (02:57→10:39)
[2024-11-06] MEDS: ONDANSETRON INJ 4 MG/2 ML VIAL IV PUSH (02:57)
[2024-11-06] MEDS: BENZOCAINE/MENTHOL (*BKC) 18 EA LOZENGE 1 LOZENGE PO (03:42)
[2024-11-06] MEDS: KETOROLAC 15 MG/ML VIAL (*BKC) IV PUSH ×3 (03:58→17:27)
[2024-11-06 04:27] LABS: Hematocrit 40.4 % (37.0-47.0); Hemoglobin 13.1 g/dL (12.0-15.0); Immature Granulocyte Percent A 0.5 % (0-0.5); Lymphocytes Absolute Auto 1.26 K/mm3 (0.9-3.2); Mean Corpuscular HGB Conc 32.4 g/dl (32-36); Mean Corpuscular Hemoglobin 29.6 pg (26-34); Mean Corpuscular Volume 91.2 fl (80-100); Nucleated Red Blood Cells Absolute Auto 0.000 K/mm3 (0.0-0.012); Nucleated Red Blood Cells Perc 0.0 % (0.0-0.2); Platelet Count Result 255 k/mm3 (150-375); Red Blood Count 4.43 M/mm3 (4.2-5.4); White Blood Count 11.4 K/mm3 (4.5-10.0)
[2024-11-06 04:49] LABS: Anion Gap 9 mmol/L (4-12); Blood Urea Nitrogen 23 mg/dL (7-17); Calcium 8.3 mg/dL (8.4-10.2); Carbon Dioxide 27 mmol/L (22-30); Chloride 100 mmol/L (98-107); Estimated CRCL calculation 66 ml/min; Estimated Glomerular Filt Rate > 60; Glucose 120 mg/dL (65-110); Potassium 3.9 mmol/L (3.4-5.0); Sodium 136 mmol/L (137-145)
[2024-11-06] MEDS: ASPIRIN 325 MG ENTERIC TABLET 650 MG PO (08:18)
[2024-11-06] MEDS: SENNA/DOCUSATE SODIUM TABLET 2 TAB PO ×2 (08:20→17:27)
[2024-11-06] MEDS: FAMOTIDINE 20 MG TABLET PO ×2 (08:20→20:39)
[2024-11-06] MEDS: CITALOPRAM HYDROBROMIDE 20 MG TABLET PO (08:20)
--- NOTE | 2024-11-06 15:40 | PM.PNORT ---
Progress Note: A&P Assessment and Plan (1) Arthritis of both knees: Code(s): M17.0 - Bilateral primary osteoarthritis of knee Status: Acute Assessment and Plan: POD 1 DOING WELL. SLOW PROGRESS WITH PT. RECOMMEND CONTINUE PT. WILL REEVALUATE IN THE AM FOR POTENTIAL DISCHARGE Plan POD Subjective Subjective Date/Time Seen: 11/06/24 15:40 Interval history: POD 1 DOING WELL. GOOD PAIN CONTROL, SLOW PROGRESS WITH PT. REQUIRES MODERATE ASSIST WITH PT Exam Extrem: Other: VSS AFEBRILE DRESSING DRY NV INTACT NEG HOMANS SIGN, CALF SOFT NON TENDER Objective Data Vital Signs Vital Signs: Vital Signs - 24 hr 11/05/24 15:55 11/05/24 16:10 11/05/24 16:20 Temperature 37.7 C H 37.1 C Pulse Rate 98 91 Respiratory Rate 16 16 Blood Pressure 122/56 L 123/53 L Pulse Oximetry 94 97 97 Oxygen Delivery Nasal Cannula Oxygen Flow Rate 3 Fraction of Inspired Oxygen 11/05/24 16:40 11/05/24 17:40 11/05/24 20:31 Temperature 37.2 C 36.9 C 37.3 C Pulse Rate 97 80 91 Respiratory Rate 16 16 20 Blood Pressure 131/72 139/50 L 138/66 Pulse Oximetry 96 100 95 Oxygen Delivery Oxygen Flow Rate Fraction of Inspired Oxygen 11/05/24 21:07 11/06/24 00:22 11/06/24 02:45 Temperature 37.1 C 38.4 C H Pulse Rate 101 H 92 Respiratory Rate 20 20 Blood Pressure 134/63 Pulse Oximetry 97 92 Oxygen Delivery Room Air Oxygen Flow Rate Fraction of Inspired Oxygen 21 11/06/24 04:23 11/06/24 08:17 11/06/24 08:20 Temperature 37.5 C 37.3 C Pulse Rate 98 79 Respiratory Rate 20 16 Blood Pressure 136/63 124/66 Pulse Oximetry 91 92 Oxygen Delivery Room Air Oxygen Flow Rate Fraction of Inspired Oxygen 11/06/24 09:00 11/06/24 09:18 11/06/24 14:06 Temperature 37.0 C Pulse Rate 92 Respiratory Rate 18 Blood Pressure 114/53 L Pulse Oximetry 98 Oxygen Delivery Room Air Room Air Oxygen Flow Rate Fraction of Inspired Oxygen Intake/Output Intake/Output: Intake & Output 11/03/24 11/04/24 11/05/24 11/06/24 23:59 23:59 23:59 23:59 Intake Total 740 1180 Output Total 650 Balance 740 530 Meds/Results Medications: Active Medications Generic Name Dose Route Start Last Admin Trade Name Freq PRN Reason Stop Dose Admin Acetaminophen 500 mg 11/05/24 15:55 Acetaminophen 500 Mg Tablet PO Q6H PRN Pain Rated 1-3 Aspirin 650 mg 11/06/24 09:00 11/06/24 08:18 Aspirin 325 Mg Enteric Tablet PO 650 mg DAILY GEORGE Administration Atorvastatin Calcium 10 mg 11/05/24 21:00 11/05/24 20:22 Atorvastatin 10 Mg Tablet PO 10 mg QHS GEORGE Administration Benzocaine 1 lozenge 11/06/24 00:26 11/06/24 03:42 Benzocaine/Menthol (*Bkc) 18 Ea Lozenge PO 1 lozenge PRN PRN Administration Sore Throat Citalopram Hydrobromide 20 mg 11/06/24 09:00 11/06/24 08:20 Citalopram Hydrobromide 20 Mg Tablet PO 20 mg DAILY GEORGE Administration Diazepam 5 mg 11/05/24 15:55 Diazepam (*Crx) 5 Mg Tablet PO Q8H PRN Spasms Diphenhydramine HCl 25 mg 11/05/24 15:55 Diphenhydramine Hcl Inj 50 Mg/Ml Vial IV PUSH Q6H PRN Itching Famotidine 20 mg 11/05/24 21:00 11/06/24 08:20 Famotidine 20 Mg Tablet PO 20 mg Q12HR GEORGE Administration Hydromorphone HCl 1 mg 11/05/24 15:55 Hydromorphone Hcl Inj (*Crx) 1 Mg/Ml Syr IV PUSH Q2H PRN Breakthrough Pain Rated 7-10 or NPO Hydromorphone HCl 0.5 mg 11/05/24 15:55 Hydromorphone Hcl Inj (*Crx) 1 Mg/Ml Syr IV PUSH Q2H PRN Breakthrough Pain Rated 4-6 or NPO Ibuprofen 800 mg in 200 mls @ 400 mls/hr 11/05/24 15:55 Caldolor 800 Mg/200 Ml IVPB Q6H PRN Breakthrough Pain Rated 1-3 or NPO Ketorolac Tromethamine 15 mg 11/05/24 16:00 11/06/24 10:39 Ketorolac 15 Mg/Ml Vial (*Bkc) IV PUSH 11/06/24 16:01 15 mg Q6H GEORGE Administration Naloxone HCl 0.1 mg 11/05/24 15:55 Naloxone Hcl 0.4 Mg/Ml Vial IV PUSH Q2M PRN Opiate Reversal Ondansetron HCl 4 mg 11/05/24 15:55 11/06/24 02:57 Ondansetron Inj 4 Mg/2 Ml Vial IV PUSH 4 mg Q4H PRN Administration Nausea And Vomiting Oxycodone/Acetaminophen 1 tablet 11/05/24 15:55 Oxycodone/Acetaminophen (*Crx) 5-325 Mg Tablet PO Q4H PRN Pain Rated 4-6 Oxycodone/Acetaminophen 1 tab 11/05/24 15:55 11/06/24 08:24 Oxycodone/Acetaminophen (*Crx) 10-325 Mg Tablet PO 1 tab Q6H PRN Administration Pain Rated 7-10 Polyethylene Glycol 17 gm 11/06/24 09:00 11/06/24 08:21 Polyethylene Glycol 3350 17 Gm Powd.Pack PO Not Given QAM GEORGE Senna/Docusate Sodium 2 tab 11/05/24 17:00 11/06/24 08:20 Senna/Docusate Sodium Tablet PO 2 tab BID GEORGE Administration Radiology Results: ITS Impressions Knee X-Ray 11/05/24 14:23 IMPRESSION: 1. Recent left total knee arthroplasty. Labs Labs: Laboratory Results - last 24 hr 11/06/24 03:36 WBC 11.4 H RBC 4.43 Hgb 13.1 Hct 40.4 MCV 91.2 MCH 29.6 MCHC 32.4 RDW 13.9 Plt Count 255 MPV 10.0 Immature Gran % (Auto) 0.5 Neut % (Auto) 78.5 H Lymph % (Auto) 11.1 L [place] % (Auto) 8.1 Eos % (Auto) 1.4 Baso % (Auto) 0.4 Lymph # (Auto) 1.26 [place] # (Auto) 0.9 H Eos # (Auto) 0.2 Baso # (Auto) 0.0 Abs Immat Gran (auto) 0.06 H Absolute Neuts (auto) 9.0 H Absolute Nucleated RBC 0.000 Nucleated RBC % 0.0 Sodium 136 L Potassium 3.9 Chloride 100 Carbon Dioxide 27 Anion Gap 9 BUN 23 H Creatinine 0.87 Estim Creat Clear Calc 66 Estimated GFR > 60 Glucose 120 H Calcium 8.3 L
[2024-11-06] MEDS: ATORVASTATIN 10 MG TABLET PO (20:39)
[2024-11-07] MEDS: oxyCODONE/ACETAMINOPHEN (*CRX) 10-325 MG TABLET 1 TAB PO ×3 (03:52→16:03)
[2024-11-07 06:03] VITALS: BP 121/54; PULSE 103; RESP 18; TEMP 38.1; O2SAT 93
[2024-11-07] MEDS: ASPIRIN 325 MG ENTERIC TABLET 650 MG PO (09:21)
[2024-11-07] MEDS: ONDANSETRON INJ 4 MG/2 ML VIAL IV PUSH (09:21)
[2024-11-07] MEDS: FAMOTIDINE 20 MG TABLET PO (09:21)
[2024-11-07] MEDS: SENNA/DOCUSATE SODIUM TABLET 2 TAB PO (09:22)
[2024-11-07] MEDS: CITALOPRAM HYDROBROMIDE 20 MG TABLET PO (09:22)
--- NOTE | 2024-11-07 09:35 | PM.PNORT ---
Progress Note: A&P Assessment and Plan (1) S/P total knee arthroplasty: Qualifiers: Laterality: left Qualified Code(s): Z96.652 - Presence of left artificial knee joint Code(s): Z96.659 - Presence of unspecified artificial knee joint Status: Acute Assessment and Plan: POD #2: Left TKA Continue PT/OT. WBAT. Walker. HIGH FALL RISK. Continue pain control. Ice Knee. Protect skin. DVT prophylaxis with Aspirin. SCDs. Incentive Spirometry Use reviewed. Monitor Dressing. Change prior to discharge. Bowel Regimen. Dispo: Home with Home Health pending progress with PT/OT Plan Reviewed history, exam, radiographs and current labs with attending MD and covering surgeon, Dr. Henry, who agrees with current plan as indicated above. No further recommendations from Dr. Henry at this time. Time Spent With Patient Time with patient: less than 15 minutes Subjective Subjective Date/Time Seen: 11/07/ 09:35 Post Op day: 2 Principal diagnosis: Left Knee DJD Interval history: POD#2: Left TKA Patient having slow progress. Still with weakness in the LLE related to preoperative nerve block. Nausea. No vomitting. Review of Systems Review of Systems: All systems reviewed & are unremarkable except as noted in HPI and below Constitutional: Constitutional: Denies fever(s) and Denies headache(s) ENT: Denies headache(s) Cardiovascular: Cardiovascular: Denies chest pain, Denies diaphoresis, Denies palpitations and Denies dyspnea Respiratory: Respiratory: Denies dyspnea Gastrointestinal: Gastrointestinal: Denies abdominal pain, Denies constipation, Denies nausea and Denies vomiting Genitourinary: Genitourinary: Reports nocturia and Denies dysuria Musculoskeletal: Musculoskeletal: Reports arthralgias (Left Knee ), Reports joint swelling (Left Knee ) and Reports limited range of motion (ROM limited due to recent surgical intervention LEFT Knee ) Neurologic: Denies headache(s) Endocrine: Endocrine: Denies palpitations Exam Const: General: comfortable and no acute distress Resp: Effort & Inspection: normal respiratory effort Cardio: Rate: regular rate Rhythm: regular rhythm GI: GI Palp: Yes Soft to palpation, No Tenderness to palpation present (GI) and No Guarding due to palpation present (GI) Skin: General skin exam: wounds noted (see extremity assessment ) Wounds: wounds noted (see extremity assessment ) Neuro: Cognition (Neuro): normal cognition Other: NV intact aside from block. Moves toes. Sensation intact to light touch. +ankle dorsiflexion/plantarflexion. Extrem: Left lower extremity: normal to inspection, normal capillary refill, knee Details: tenderness (diffuse ) Location: of the patella, swelling (moderate consistent to recent surgery ), abnormal ROM (limited due to recent surgery ) Details: pain with active ROM and pain with passive ROM and ecchymosis (as expected with recent surgery. NO hematoma. ), lower leg (Negative Tuyet's Sign ), ankle (+ankle dorsiflexion/plantarflexion ) Details: normal to inspection, no edema and normal ROM; no tenderness and no swelling and foot Details: normal capillary refill, toes with normal ROM, vascular exam Details: dorsalis pedis pulse present and motor-sensory exam light-touch normal; no tenderness Other: Incision left TKA dressing c/d/i. No hematoma. No signs of infection. No wound dehiscence. Psych: Mental Status: mental status grossly normal Objective Data Vital Signs Vital Signs: Vital Signs - 24 hr 11/06/24 14:06 11/06/24 17:35 11/06/24 17:40 Temperature 37.0 C 37.9 C H 37.6 C H Pulse Rate 92 103 H Respiratory Rate 18 18 Blood Pressure 114/53 L 126/65 Pulse Oximetry 98 90 Oxygen Delivery Fraction of Inspired Oxygen 11/06/24 18:51 11/06/24 19:45 11/06/24 20:30 Temperature 37.5 C Pulse Rate 103 H 102 H Respiratory Rate 18 Blood Pressure Pulse Oximetry 90 92 Oxygen Delivery Room Air Room Air Fraction of Inspired Oxygen 21 21 11/07/24 06:03 Temperature 38.1 C H Pulse Rate 103 H Respiratory Rate 18 Blood Pressure 121/54 L Pulse Oximetry 93 Oxygen Delivery Fraction of Inspired Oxygen Intake/Output Intake/Output: Intake & Output 11/04/24 11/05/24 11/06/24 11/07/24 23:59 23:59 23:59 23:59 Intake Total 740 1520 Output Total 1050 1000 Balance 740 470 -1000 Meds/Results Medications: Active Medications Generic Name Dose Route Start Last Admin Trade Name Freq PRN Reason Stop Dose Admin Acetaminophen 500 mg 11/05/24 15:55 Acetaminophen 500 Mg Tablet PO Q6H PRN Pain Rated 1-3 Aspirin 650 mg 11/06/24 09:00 11/07/24 09:21 Aspirin 325 Mg Enteric Tablet PO 650 mg DAILY GEORGE Administration Atorvastatin Calcium 10 mg 11/05/24 21:00 11/06/24 20:39 Atorvastatin 10 Mg Tablet PO 10 mg QHS GEORGE Administration Benzocaine 1 lozenge 11/06/24 00:26 11/06/24 03:42 Benzocaine/Menthol (*Bkc) 18 Ea Lozenge PO 1 lozenge PRN PRN Administration Sore Throat Citalopram Hydrobromide 20 mg 11/06/24 09:00 11/07/24 09:22 Citalopram Hydrobromide 20 Mg Tablet PO 20 mg DAILY GEORGE Administration Diazepam 5 mg 11/05/24 15:55 Diazepam (*Crx) 5 Mg Tablet PO Q8H PRN Spasms Diphenhydramine HCl 25 mg 11/05/24 15:55 Diphenhydramine Hcl Inj 50 Mg/Ml Vial IV PUSH Q6H PRN Itching Famotidine 20 mg 11/05/24 21:00 11/07/24 09:21 Famotidine 20 Mg Tablet PO 20 mg Q12HR GEORGE Administration Hydromorphone HCl 1 mg 11/05/24 15:55 Hydromorphone Hcl Inj (*Crx) 1 Mg/Ml Syr IV PUSH Q2H PRN Breakthrough Pain Rated 7-10 or NPO Hydromorphone HCl 0.5 mg 11/05/24 15:55 Hydromorphone Hcl Inj (*Crx) 1 Mg/Ml Syr IV PUSH Q2H PRN Breakthrough Pain Rated 4-6 or NPO Ibuprofen 800 mg in 200 mls @ 400 mls/hr 11/05/24 15:55 Caldolor 800 Mg/200 Ml IVPB Q6H PRN Breakthrough Pain Rated 1-3 or NPO Naloxone HCl 0.1 mg 11/05/24 15:55 Naloxone Hcl 0.4 Mg/Ml Vial IV PUSH Q2M PRN Opiate Reversal Ondansetron HCl 4 mg 11/05/24 15:55 11/07/24 09:21 Ondansetron Inj 4 Mg/2 Ml Vial IV PUSH 4 mg Q4H PRN Administration Nausea And Vomiting Oxycodone/Acetaminophen 1 tablet 11/05/24 15:55 Oxycodone/Acetaminophen (*Crx) 5-325 Mg Tablet PO Q4H PRN Pain Rated 4-6 Oxycodone/Acetaminophen 1 tab 11/05/24 15:55 11/07/24 03:52 Oxycodone/Acetaminophen (*Crx) 10-325 Mg Tablet PO 1 tab Q6H PRN Administration Pain Rated 7-10 Polyethylene Glycol 17 gm 11/06/24 09:00 11/07/24 09:22 Polyethylene Glycol 3350 17 Gm Powd.Pack PO Not Given QAM GEORGE Senna/Docusate Sodium 2 tab 11/05/24 17:00 11/07/24 09:22 Senna/Docusate Sodium Tablet PO 2 tab BID GEORGE Administration Radiology Results: ITS Impressions Knee X-Ray 11/05/24 14:23 IMPRESSION: 1. Recent left total knee arthroplasty. Quality VTE Prophylaxis VTE prophylaxis: pharmacologic ordered
[2024-11-07 10:07] VITALS: TEMP 36.9
--- NOTE | 2024-11-07 15:38 | P.DS_ITS ---
DS: Admitting Diagnosis Discharge Date 11/07/2024 Admitting Diagnosis Left Knee DJD DS: Discharge Diagnosis Discharge Diagnosis (1) S/P total knee arthroplasty: Qualifiers: Laterality: left Qualified Code(s): Z96.652 - Presence of left artificial knee joint Code(s): Z96.659 - Presence of unspecified artificial knee joint Status: Acute Assessment and Plan: POD #2: Left TKA Continue PT/OT. WBAT. Walker. HIGH FALL RISK. Continue pain control. Ice Knee. Protect skin. DVT prophylaxis with Aspirin. SCDs. Incentive Spirometry Use reviewed. Monitor Dressing. Change prior to discharge. Bowel Regimen. Dispo: Home with Home Health pending progress with PT/OT Plan Reviewed history, exam, radiographs and current labs with attending MD and covering surgeon, Dr. Henry, who agrees with current plan as indicated above. No further recommendations from Dr. Henry at this time. DS: Summary Hospital Course Reason for hospitalization: Left TKA Hospital Course: 64 year old female admitted s/p Left TKA for postoperative medical management, pain control and mobilization with PT/OT. Patient Had slow progress with PT and OT on postop day 1 but progressed well on postop day 2. The patient has been cleared to be discharged home with home health at this time. All discharge care instructions reviewed at depth. New medications reviewed. Follow up planned for 3 weeks in the outpatient orthopedic clinic with Dr. Henry. Dr. Henry in agreement with safe discharge at this time. Status at Discharge Functional status at discharge: uses cane/walker Overall status at discharge: patient is progressing back to baseline Time Spent with Patient Time attestation: Total time spent providing and/or coordinating discharge services: Exam Const: General: comfortable and no acute distress Resp: Effort & Inspection: normal respiratory effort Cardio: Rate: regular rate Rhythm: regular rhythm Skin: General skin exam: wounds noted (see extremity assessment ) Wounds: wounds noted (see extremity assessment ) Neuro: Cognition (Neuro): normal cognition Other: NV intact aside from block. Moves toes. Sensation intact to light touch. +ankle dorsiflexion/plantarflexion. Extrem: Left lower extremity: normal to inspection, normal capillary refill, knee Details: tenderness (diffuse ) Location: of the patella, swelling (moderate consistent to recent surgery ), abnormal ROM (limited due to recent surgery ) Details: pain with active ROM and pain with passive ROM and ecchymosis (as expected with recent surgery. NO hematoma. ), lower leg (Negative Tuyet's Sign ), ankle (+ankle dorsiflexion/plantarflexion ) Details: normal to inspection, no edema and normal ROM; no tenderness and no swelling and foot Details: normal capillary refill, toes with normal ROM, vascular exam Details: dorsalis pedis pulse present and motor-sensory exam light-touch normal; no tenderness Other: Incision left TKA dressing c/d/i. No hematoma. No signs of infection. No wound dehiscence. Psych: Mental Status: mental status grossly normal Discharge Plan Discharge Attending physician on discharge: Jace Henry Discharging Clinician: Ursula Estrada Patient Disposition: Home with Home Health Service Activity: may shower, no driving and follow weight bearing status Diet: regular Wound Care Instructions: follow printed instructions Discharge Instructions: Per Care Coordination. Patient to have [facility] for RN/PT/OT eval and treat [phone]. They will contact patient to schedule first visit. Post Op Total Knee Replacement Instructions Dr. Jace Henry [phone] * Your dressing will be changed prior to your discharge. You will be sent home with one additional dressing to be changed on post op day 7 by the home health RN. Your giselle will be removed on the 14th day after surgery and steri- strips will be placed. Please practice good hand hygiene and do not touch your incision in order to prevent infection. * You may shower with your dressing but do not submerge in a bath tub. * Do not drive or operate machinery until you are released by Dr. Henry. * Do not walk without a walker for any reason until you are released by Dr. Henry. * Continue to use your ice machine. Please use a towel or pillow case to protect your skin before applying your ice machine. * Do NOT place a pillow under your knee. You may use a pillow from the calf down if needed. This will prevent a flexion contracture postoperatively. * CPM: You may begin use of your CPM machine at home if you have been given one pre-operatively. DO NOT USE WHILE YOU ARE SLEEPING. * ROMTech: If you were given a ROMTech Portable Connect System preoperatively, you are to begin use on the day you arrive home postoperatively. Our goal is for you to use the machine 5 times per day. The sessions are very short in the beginning and will progress as you progress. We are able to monitor your progress from afar as well as your pain and other reported symptoms. If you have difficulties with the machine, please call . NOTE: Please attempt to use the machine even when in pain as this will refractory tile helper your therapy with very gentle motion. * Your first post op appointment was sent to you via mail preoperatively. If you have any questions or are unable to make your appointment, please contact our office for scheduling questions. * Your medications have been sent to your pharmacy. You have been sent home with pain medication. Please sheepskin pickler an over the counter stool softener to prevent constipation due to narcotic use. Please keep this in mind during your postoperative recovery. If you are not experiencing regular bowel movements, please contact our office for further instruction. * Please contact our office with any questions/concerns regarding your knee at [phone]. Patient Instructions: Antibiotic Form Patient Language: Azeri Stand Alone Forms: General Discharge Information Follow-up/Referrals: Jace Henry MD [Physician, Orthopedics] - Keep Reg. Scheduled Appt. Discharge Medications: New aspirin 325 mg Tablet,Delayed Release (Dr/Ec) 650 mg PO DAILY 28 Days Qty: 56 0RF oxycodone-acetaminophen 5-325 mg Tablet 1 tablet PO Q4-6H PRN (Reason: pain) Qty: 30 0RF Continued cholecalciferol (vitamin D3) 50 mcg (2,000 unit) capsule 50 mcg PO DAILY calcium carbonate [Calcium 600] 600 mg calcium (1,500 mg) tablet 600 mg PO DAILY diphenhydramine HCl [Allergy (diphenhydramine)] 25 mg tablet 25 mg PO HS atorvastatin [Lipitor] 10 mg tablet 10 mg PO QHS Qty: 90 1RF citalopram 40 mg tablet 20 mg PO DAILY Qty: 90 1RF alprazolam 0.5 mg tablet 0.5 mg PO BID PRN (Reason: anxiety) Qty: 60 0RF Discontinued hydrocodone-acetaminophen 5-325 mg tablet 1 tablet PO Q8H PRN (Reason: pain) Qty: 30 0RF Date of admission: 11/06/24 15:49 Primary Care Provider: Kateryna Fleming Admitting Provider: Jace Henry Attending physician on admission: Jace Henry Condition: Stable Quality VTE Prophylaxis VTE prophylaxis: pharmacologic ordered
== END 2024-11-07 16:22 | disposition home health service (06) ==
LOC: ANHSURGERY 16:04 → ANH2MED 16:04
PROVIDERS: Admitting Provider Orthopaedic Surgery; PCP Nurse Practitioner Family; Visit Provider Orthopaedic Surgery
PROC: (CPT 27447; principal; 2024-11-05 11:30)
DX: M17.12 Unilateral primary osteoarthritis, left knee (principal); E78.5 Hyperlipidemia, unspecified; K21.9 Gastro-esophageal reflux disease without esophagitis; F41.9 Anxiety disorder, unspecified; Z79.891 Long term (current) use of opiate analgesic; G89.18 Other acute postprocedural pain
CPT/HCPCS: 27447; 64447; 36415; 73560; 80048; 85025; 86850; 86900; 86901; 97110; 97161; 97166; 97530; 97535; J0690; A9270; C1713; C1776; G0378; J0166; J1171; J1885; J2250; J2270; J2405; J2795; J3010; J7120

== ENCOUNTER 2024-12-17 11:00 | Outpatient (CLI) | payer MEDICARE, SELFPAY ==
[2024-12-17 11:42] LABS: Hematocrit 46.7 % (37.0-47.0); Hemoglobin 15.1 g/dL (12.0-15.0); Immature Granulocyte Percent A 0.5 % (0-0.5); Lymphocytes Absolute Auto 1.30 K/mm3 (0.9-3.2); Mean Corpuscular HGB Conc 32.3 g/dl (32-36); Mean Corpuscular Hemoglobin 29.4 pg (26-34); Mean Corpuscular Volume 91.0 fl (80-100); Nucleated Red Blood Cells Absolute Auto 0.000 K/mm3 (0.0-0.012); Nucleated Red Blood Cells Perc 0.0 % (0.0-0.2); Platelet Count Result 309 k/mm3 (150-375); Red Blood Count 5.13 M/mm3 (4.2-5.4); White Blood Count 4.0 K/mm3 (4.5-10.0)
[2024-12-17 12:04] LABS: Alanine Aminotransferase 32 U/L (6-35); Albumin Level 4.6 g/dL (3.5-5.1); Alkaline Phosphatase 125 U/L (38-126); Anion Gap 8 mmol/L (4-12); Aspartate Amino Transferase 43 U/L (14-36); Bilirubin,Total 0.5 mg/dL (0.2-1.3); Blood Urea Nitrogen 21 mg/dL (7-17); Calcium 8.8 mg/dL (8.4-10.2); Carbon Dioxide 24 mmol/L (22-30); Chloride 106 mmol/L (98-107); Cholesterol 141 mg/dL (0-200); Estimated Glomerular Filt Rate > 60; Glucose 105 mg/dL (65-110); HDL Direct 48 mg/dL; Potassium 4.2 mmol/L (3.4-5.0); Sodium 138 mmol/L (137-145); Total Protein 8.0 g/dL (6.3-8.2); Triglycerides 93 mg/dL (<150)
[2024-12-17 12:35] LABS: Thyroid Stimulating Hormone Reflex 1.040 uIU/mL (0.465-4.68)
--- OUTSIDE RECORDS SUMMARY | 2024-12-17 13:12 | XMS_ITS | Clinical Summary ---
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
--- OUTSIDE RECORDS SUMMARY | 2024-12-17 13:12 | XMS_ITS | Clinical Summary ---
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 Gender Identity Not on file Sexual Orientation Not on file Last Filed Vital Signs Vital Sign Reading Time Taken Comments Blood Pressure 118/98 01/04/2019 1:30 PM FLOORING INSTALLER Pulse 86 01/04/2019 1:35 PM FLOORING INSTALLER Temperature 37 C (98.6 F) 01/04/2019 12:30 PM FLOORING INSTALLER Respiratory Rate 18 01/04/2019 1:35 PM FLOORING INSTALLER Oxygen Saturation 92% 01/04/2019 1:35 PM FLOORING INSTALLER Inhaled Oxygen Concentration - - Weight 80 kg (176 lb 4.8 oz) 01/04/2019 9:15 AM FLOORING INSTALLER Height 172.7 cm (5' 8) 01/04/2019 9:15 AM FLOORING INSTALLER Body Mass Index 26.81 01/04/2019 9:15 AM FLOORING INSTALLER Plan of Treatment Not on file Medical Devices Implanted Type Area Line Installer Repairer Device Identifier Shelf Expiration Date Model / Serial / Lot [employer] [id number] Corkscrew Fiberwire Tigerwire 5.5mm 14.7mm 2 Drive Mechanism Vent - [id number] Implanted:Qty: 1 on 01/04/2019 by Yash Collier IV, MD at [facility] [employer] 07/13/2020 [id number] [facility] / / [id number] Insurance [facility] CHO[facility] PLUS [facility] CHOICE PLUS Care Teams Filler Sifter Machine Relationship Specialty Start Date End Date Darren Mario MD [address] [place] [address] PCP - General Family Practice 04/12/18
== END 2024-12-17 11:01 | disposition home or self-care (01) ==
LOC: ANHLAB 11:01
PROVIDERS: PCP Family Medicine; Visit Provider Nurse Practitioner Family
DX: E55.9 Vitamin D deficiency, unspecified (principal); I10 Essential (primary) hypertension; F32.A Depression, unspecified; Z13.29 Encounter for screening for other suspected endocrine disorder; E78.5 Hyperlipidemia, unspecified
CPT/HCPCS: 36415; 80053; 80061; 82306; 84443; 85025